=== PATIENT | female | born 1960 | race Caucasian/White ===

== ENCOUNTER → 2017-11-03 10:38 | Outpatient (CLI) | payer OTHER, SELFPAY ==
[2017-11-03 10:46] LABS: Red Blood Cells-Urine 0 SEEN /hpf (0-5)
[2017-11-03 11:19] LABS: Color, Urine Yellow (Yellow); Glucose, Dipstick Normal (Normal); Ketone-Dipstick Negative (Negative); Leukocyte Esterase-Dipstick 100 /ul (Negative); Nitrite-Dipstick Negative (Negative); Occult Blood-Urine Negative /ul (Negative); Protein-Dipstick Negative (Negative); Specific Gravity, Urine 1.025 (1.002-1.030); Urine Bilirubin Dipstick Negative (Negative); Urine Clarity Sl. Cloudy (Clear); Urine Urobilinogen 1 mg/dl (Normal)
[2017-11-03 11:30] LABS: Bacteria 1+ /hpf (None Seen); Squamous Epithelial Cells - UA 25-50 SEEN /hpf (5-10); White Blood Cells 5-10 SEEN /hpf (0-5)
[2017-11-03 11:31] LABS: Mucous, Urine 2+ /hpf (<or=2+)
[2017-11-03 11:39] LABS: Hemoglobin A1c 6.7 % (4.2-6.3)
[2017-11-03 11:43] LABS: Microalbumin,Random Urine 21.1 mg/L (NO RANGE EST.); Microalbumin:Creatinine Ratio 12.2 mg/g CRE (<30 mg/g CRE)
[2017-11-03 12:05] LABS: ALB/GLOB Ratio 0.9 RATIO (0.9-2.4); AST(SGOT) 12 U/L (15-37); Alanine Aminotransfer ALT/SGPT 24 U/L (13-56); Albumin, Serum 3.4 g/dL (3.2-5.0); Alkaline Phosphatase 71 U/L (45-117); Anion Gap 9 (5-15); BUN 16 mg/dL (7-18); BUN/Creat Ratio 21.8 RATIO (10-20); Calcium,Total 8.7 mg/dL (8.5-10.1); Chloride 106 mmol/L (98-107); Cholesterol 196 mg/dL (200); Creatinine, Serum 0.74 mg/dL (0.55-1.02); EST Glomerular Filtration Rate 86 mL/min (>60); Est Glom Filt Rate - Afr Amer 104 mL/min (>60); Globulin 3.8 g/dL (2.2-4.2); Glucose 126 mg/dL (74-106); High Density Lipoprotein 49 mg/dL; Potassium 4.1 mmol/L (3.5-5.1); Protein, Total 7.2 g/dL (6.4-8.2); Sodium Level 143 mmol/L (136-145); Triglycerides 102 mg/dL; Very Low Density Lipoprotein 20 mg/dL (5-40)
== END ==
PROVIDERS: Family Provider Family Medicine; PCP Family Medicine; Visit Provider Family Medicine
DX: E11.9 Type 2 diabetes mellitus without complications (principal); Z79.899 Other long term (current) drug therapy
CPT/HCPCS: 36415; 80053; 80061; 81001; 82043; 82570; 83036

== ENCOUNTER → 2019-10-30 09:24 | Outpatient (CLI) | payer OTHER, SELFPAY ==
[2017-01-31 15:23] VITALS: BMI 45.1
[2019-10-30 10:14] LABS: Microalbumin,Random Urine 10.8 mg/L (NO RANGE EST.); Microalbumin:Creatinine Ratio 7.1 mg/g CRE (<30 mg/g CRE)
[2019-10-30 10:22] LABS: Albumin, Serum 3.4 g/dL (3.2-5.0); BUN 12 mg/dL (7-18); BUN/Creat Ratio 15.6 RATIO (10-20); Creatinine, Serum 0.77 mg/dL (0.55-1.02); EST Glomerular Filtration Rate 81 mL/min (>60); Est Glom Filt Rate - Afr Amer 98 mL/min (>60); Glucose 153 mg/dL (74-106); Protein, Total 7.3 g/dL (6.4-8.2)
[2019-10-30 10:23] LABS: ALB/GLOB Ratio 0.9 RATIO (0.9-2.4); AST(SGOT) 20 U/L (15-37); Alanine Aminotransfer ALT/SGPT 28 U/L (13-56); Alkaline Phosphatase 78 U/L (45-117); Anion Gap 5 (5-15); Calcium,Total 8.8 mg/dL (8.5-10.1); Chloride 105 mmol/L (98-107); Cholesterol 222 mg/dL (200); Globulin 3.9 g/dL (2.2-4.2); High Density Lipoprotein 46 mg/dL; Sodium Level 139 mmol/L (136-145); Triglycerides 161 mg/dL; Very Low Density Lipoprotein 32 mg/dL (5-40)
[2019-10-30 11:10] LABS: HIV - WCH Non-Reactive (Nonreactive); Hepatitis C Antibody Non-Reactive (Nonreactive)
== END ==
PROVIDERS: PCP Nurse Practitioner Primary Care; Referring Provider Nurse Practitioner Primary Care; Visit Provider Nurse Practitioner Primary Care
DX: Z13.220 Encounter for screening for lipoid disorders (principal); E11.9 Type 2 diabetes mellitus without complications; Z11.59 Encounter for screening for other viral diseases; Z11.4 Encounter for screening for human immunodeficiency virus [HIV]
CPT/HCPCS: 36415; 80053; 80061; 82043; 82570; 86703; 86803

== ENCOUNTER 2023-10-24 01:58 | Inpatient (IN) | payer BC, SELFPAY ==
[2023-10-24] VITALS (17 sets, daily range): BP systolic 125–191; BP diastolic 48–78; PULSE 99–119; RESP 14–34; TEMP 36.3–36.8; O2SAT 94–99; BMI 39.9; BMI 39.7
[2023-10-24 02:30] LABS: Absolute Lymphocyte Count 2.23 X10^3/uL (0.83-4.51); Absolute Neutrophil Count 10.2 X10^3/uL (2.0-7.7); Basophil# 0.08 X10^3/uL; Basophil% 0.6 % (0-1); Eosinophil# 0.01 X10^3/uL; Eosinophils% 0.1 % (0-5); Hematocrit 31.5 % (37-47); Hemoglobin 10.4 g/dL (12.0-15.0); Lymphocyte # 2.23 X10^3/ul (0.83-4.51); Lymphocyte % 16.8 % (19-41); Mean Corpuscular Hgb 29.5 pg (27.0-32.0); Mean Corpuscular Volume 89.5 fL (81-99); Mean Platelet Vol. 11.7 fl (6.2-12.0); Monocyte% 5.3 % (0-10); NRBC Flagged by Analyzer 0 % (0-5); Neutrophil # 10.16 X10^3/uL (2.7-7.7); Neutrophil % 76.2 % (47-70); Platelet Count 284 K/mm3 (150-450); RBC Distribution Width CV 11.9 % (11.6-14.6); RBC Distribution Width SD 38.5 fl (35.1-43.9); Red Blood Count 3.52 M/mm3 (4.2-5.4); White Blood Count 13.3 K/mm3 (4.4-11.0)
[2023-10-24 02:54] LABS: AST(SGOT) 8 U/L (15-37); Alanine Aminotransfer ALT/SGPT 18 U/L (13-56); Albumin, Serum 3.2 g/dL (3.2-5.0); Alkaline Phosphatase 83 U/L (45-117); Anion Gap 12 (5-15); BUN 36 mg/dL (7-18); Bilirubin, Direct 0.21 mg/dL (0.00-0.30); Calcium,Total 8.9 mg/dL (8.5-10.1); Chloride 96 mmol/L (98-107); EST Glomerular Filtration Rate 48 mL/min (>60); Est Glom Filt Rate - Afr Amer 58 mL/min (>60); Globulin 3.5 g/dL (2.2-4.2); Glucose 616 mg/dL (74-106); Potassium 4.5 mmol/L (3.5-5.1); Protein, Total 6.7 g/dL (6.4-8.2); Sodium Level 131 mmol/L (136-145)
[2023-10-24 03:02] LABS: International Normalized Ratio 1.1; Prothrombin Time (Protime)PT. 14.4 SECONDS (11.7-14.9)
[2023-10-24 03:02] LABS: Lactic Acid 3.6 mmol/L (0.4-1.9)
[2023-10-24 03:03] LABS: Partial Thromboplast Time 22.9 Seconds (24.1-36.2)
--- NOTE | 2023-10-24 03:20 | CT_ITS ---
EXAM: CT ANGIOGRAPHY ABDOMEN AND PELVIS WITHOUT AND WITH INTRAVENOUS CONTRAST CLINICAL INDICATION: GI bleed TECHNIQUE: Helically acquired angiography images were obtained of the abdomen and pelvis without and with intravenous contrast. This CT exam was performed using one or more of the following dose reduction techniques: automated exposure control, adjustment of the mA and/or kV according to patient size, and/or use of iterative reconstruction technique. MIP reconstructed images were created and reviewed. CONTRAST: 100 cc of Isovue-370 IV. RADIATION DOSE: CTDIvol = 25.65 mGy, DLP = 1296.29 mGy-cm COMPARISON: No relevant prior studies available. FINDINGS: VASCULATURE: AORTA: No acute findings. Normal caliber abdominal aorta. No dissection. CELIAC TRUNK AND MESENTERIC ARTERIES: No acute findings. No occlusion or significant stenosis. No dissection. RENAL ARTERIES: No acute findings. No occlusion or significant stenosis. No dissection. ILIAC ARTERIES: No acute findings. No occlusion or significant stenosis. No dissection. LOWER THORAX: Unremarkable. Lung bases are clear. No cardiomegaly. No significant pericardial effusion. ABDOMEN: LIVER: Unremarkable. Homogeneous. No focal mass. GALLBLADDER AND BILE DUCTS: Cholecystectomy. No intra- or extrahepatic biliary ductal dilation. PANCREAS: Unremarkable. No focal cystic or solid mass. SPLEEN: Unremarkable. Normal size without focal cystic or solid mass. ADRENALS: Unremarkable. No nodules. KIDNEYS AND URETERS: Unremarkable. Normal renal size and position. No hydronephrosis. STOMACH AND BOWEL: Unremarkable. No stomach or bowel distention. No focal inflammatory change. PELVIS: APPENDIX: Normal appendix. BLADDER: Unremarkable. REPRODUCTIVE: Unremarkable as visualized. No mass. ABDOMEN and PELVIS: INTRAPERITONEAL SPACE: Unremarkable. No ascites or other fluid collection. No free air. BONES/JOINTS: Unremarkable. No suspicious lytic or blastic abnormality. SOFT TISSUES: Unremarkable. No discrete abdominal or pelvic wall hernia. LYMPH NODES: Unremarkable. No enlarged lymph nodes. CT/CTA Abd/Pelvis W/WO Contrast IMPRESSION: 1. No acute abdominal pelvic abnormality. 2. Cholecystectomy. 3. No GI bleeding identified. Electronically Signed: Jose Luis Lagunas MD at 5:47 EDT ,
[2023-10-24] MEDS: Pantoprazole Sodium 80 MG in 0.9% Normal Saline (50mL Bag) 15 ML 420 MG IV BOLUS (03:30)
[2023-10-24] MEDS: 0.9% Normal Saline (1000mL) 1,000 ML 999 ML IV ×2 (03:36→04:10)
[2023-10-24] MEDS: Pantoprazole Sodium 80 MG in 0.9% Normal Saline (100mL Bag) 80 ML 10 MG CONT INF ×2 (03:36→13:40)
[2023-10-24 04:26] LABS: Osmolality, Serum 309 mOsm/KG (280-301)
[2023-10-24 05:12] LABS: Bedside Glucose 342 mg/dL (74-106)
[2023-10-24 05:12] LABS: Bedside Glucose > 500 mg/dL (74-106)
[2023-10-24] MEDS: Insulin Lispro 100 UNIT/ML INSULN.PEN 8 UNIT SC (05:46)
--- NOTE | 2023-10-24 06:05 | PCM.HP.STD ---
[facility] - General General Date of Admission: 10/24/23 Date of Service: 10/24/23 Chief Complaint: GI Bleed with Dark Stools and Hyperglycemia. HPI Narrative WILLIAM GOLD, is a 62 F with a past medical history of history of morbid obesity; with BMI of ~45 this admission, DM-2; uncontrolled with hyperglycemia, positive family history of gastric cancer in her mother, history of cholecystectomy (1989), medical noncompliance and OA; with patient using daily unopposed ECASA to control pain who presents to [facility] ER complaining of GI bleed with dark stools and Severe Hyperglycemia. Ms Gold reports her symptoms began approximately 2-3 days prior to admission with the abrupt-onset of dark colored stools that initially was mild but then progressively worsened at approximately 6 AM yesterday with large volume of dark very foul-smelling stools. 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 She denies a history of GI bleeding, known peptic ulcer disease, GERD, other recent illness or similar previous episodes. She admits to nausea but she denies vomiting, fever, chills, constipation, chest pain or shortness of breath. She has not been actively managing her blood sugars or any of her other chronic health conditions. In the ER she underwent a CTA of the abdomen and pelvis with IV contrast that was negative for active bleeding at this time and she was then diagnosed with acute upper GI bleed with dark stools followed by bright red blood per rectum likely due to gastritis and suspected PUD secondary to Adverse Drug Reaction to unopposed aspirin complicated by laboratory evidence of lactic acidosis of 3.6 mmol/L present on admission and severe hyperglycemia of 616 mg/dL present on admission (but without DKA) all in the setting of chronic medical noncompliance and she was then admitted to the PCU for ongoing care for stay is expected to extend beyond 2 midnights. FORMERLY [facility], [facility]–1983 Medical History (Updated 10/24/23 @ 07:[address] Zeb Gonzalez, DO) Diabetes Home Medications ?Medication ?Instructions ?Recorded ?Last Taken ?Type aspirin 325 mg capsule 325 mg PO Q6H 10/24/23 Unknown History Allergy/AdvReac Type Severity Reaction Status Date / Time No Known Allergies Allergy Unverified 01/31/17 15:24 Surgical History (Updated 10/24/23 @ 07:[address] Zeb Gonzalez DO) Hx of cholecystectomy Social History Smoking Status: Never smoker alcohol intake: never ROS ROS Narrative Review of systems: General: Patient denies fever or chills. HENT: Denies headache, denies stuffy nose, denies sore throat EYES: Denies changes in vision or discharge from eyes. Resp: Denies cough, denies shortness of breath Cardiac: Denies chest pain, palpitations or heart racing. GI: Patient admits to GI bleed with dark stools with epigastric abdominal pain and nausea but she denies vomiting as per HPI. : Denies changes in urination Extremity: Denies swelling Musculoskeletal: Feels somewhat generally weak and unwell with chronic knee pain that is made worse with mobilization. She denies myalgias. Neuro: Patient denies headache, paresthesias or focal neurologic deficits. Heme: Patient admits to dark stools with intermittent BRBPR. Skin: Denies rashes Psychiatric: No complaints voiced related uncontrolled depression or anxiety. Endocrine: No polyuria, polydipsia or polyphagia. The rest of the 14 point ROS was negative except for positives in HPI. Vital Signs Vital Signs Vital Signs: 10/24/23 02:00 10/24/23 02:02 10/24/23 02:08 Temperature 98.2 F 98.2 F Temperature Source Oral Oral Pulse Rate 119 H 118 H 115 H Respiratory Rate 20 H 18 34 H Blood Pressure 191/74 H 191/74 H Blood Pressure Mean 113 113 Pulse Ox 94 94 Oxygen Delivery Method Room Air Room Air 10/24/23 02:15 10/24/23 02:30 10/24/23 02:45 Temperature Temperature Source Pulse Rate 114 H 114 H 115 H Respiratory Rate 27 H 23 H 18 Blood Pressure 159/74 H 155/78 H 139/62 H Blood Pressure Mean 95 98 82 Pulse Ox Oxygen Delivery Method 10/24/23 03:00 10/24/23 03:02 10/24/23 03:15 Temperature 98.2 F Temperature Source Temporal Pulse Rate 112 H 113 H Respiratory Rate 23 H 20 H Blood Pressure 162/76 H 162/76 H 155/62 H Blood Pressure Mean 102 104 81 Pulse Ox 98 97 Oxygen Delivery Method Room Air Room Air 10/24/23 03:24 10/24/23 03:30 10/24/23 03:50 Temperature Temperature Source Pulse Rate 111 H 109 H 118 H Respiratory Rate 24 H 34 H 33 H Blood Pressure 168/74 H Blood Pressure Mean 97 Pulse Ox Oxygen Delivery Method 10/24/23 04:00 Temperature Temperature Source Pulse Rate 107 H Respiratory Rate 19 H Blood Pressure 148/64 H Blood Pressure Mean 85 Pulse Ox 97 Oxygen Delivery Method Room Air Physical Exam Const alert, oriented x3 and no apparent distress Constitutional Narrative: Morbidly obese with chronically ill appearance. General Appearance: cooperative HEENT normocephalic, head/scalp atraumatic, hearing grossly normal bilaterally and moist oral mucous membranes Eyes PERRL and EOMs intact bilaterally Neck no lymphadenopathy and supple Resp normal respiratory effort, no retractions, no use of accessory muscles and clear to auscultation bilaterally Cardio regular rate and regular rhythm GI normal to inspection, nondistended, normoactive bowel sounds, soft to palpation and non-distended GI Narrative: Mild tenderness to palpation over epigastrium. Extremity normal to inspection and full ROM Skin Skin Narrative: Patient has no evidence of rash, wounds, abscess or jaundice Neuro oriented x3, CN's II-XII intact bilaterally, moves all extremities and no focal motor deficits Sensorium / Orientation: awake, alert, oriented to person, oriented to place and oriented to time Speech: speech normal Psych affect normal Results Medical Records Data Attestation: I reviewed the patient's medical records Lab / Micro Data Attestation: I reviewed the patient's lab results. 10/24/23 02:06 10/24/23 02:06 Labs: Laboratory Results - last 24 hr 10/24/23 02:06: WBC 13.3 H, RBC 3.52 L, Hgb 10.4 L, Hct 31.5 L, MCV 89.5, MCH 29.5, MCHC 33.0, RDW Std Deviation 38.5, RDW Coeff of Vladislav 11.9, Plt Count 284, MPV 11.7, Immature Gran % (Auto) 1.000 H, Neut % (Auto) 76.2 H, Lymph % (Auto) 16.8 L, [place] % (Auto) 5.3, Eos % (Auto) 0.1, Baso % (Auto) 0.6, Absolute Neuts (auto) 10.2 H, Absolute Lymphs (auto) 2.23, Nucleated RBC % 0, PT 14.4, INR 1.1, APTT 22.9 L, Sodium 131 L, Potassium 4.5, Chloride 96 L, Carbon Dioxide 23.0, Anion Gap 12, BUN 36 H, Creatinine 1.20 H, Est GFR (MDRD) Af Amer 58 L, Est GFR (MDRD) Non-Af 48 L, BUN/Creatinine Ratio 30.0 H, Glucose 616 H*, Calcium 8.9, Total Bilirubin 1.00, Direct Bilirubin 0.21, AST 8 L, ALT 18, Alkaline Phosphatase 83, Total Protein 6.7, Albumin 3.2, Globulin 3.5, Blood Type A POSITIVE, Antibody Screen NEGATIVE 10/24/23 02:20: POC Glucose > 500 H* 10/24/23 02:29: Lactic Acid 3.6 H* 10/24/23 03:43: Serum Osmolality 309 H, Acetone Level NEGATIVE 10/24/23 04:52: POC Glucose 342 H Micro: Microbiology 10/24/23 02:29 Stool Stool Occult Blood (DIEGO) - Final Occult Blood Positive Imaging Radiology Impression Abdomen/Pelvis CTA 10/24/23 03:20 IMPRESSION: 1. No acute abdominal pelvic abnormality. 2. Cholecystectomy. 3. No GI bleeding identified. Electronically Signed: Jose Luis Lagunas MD at 5:47 EDT , Assessment & Plan Assessment/Plan (1) Upper GI bleed: (2) Adverse drug reaction: QUALIFIERS: Encounter type: initial encounter Qualified Code(s): T50.905A - Adverse effect of unspecified drugs, medicaments and biological substances, initial encounter (3) Lactic acidosis: (4) Severe hyperglycemia due to diabetes mellitus: (5) Medical non-compliance: (6) Morbid obesity with BMI of 45.0-49.9, adult: (7) Family history of gastric cancer: (8) Osteoarthritis: QUALIFIERS: Osteoarthritis location: knee Osteoarthritis type: unspecified Laterality: bilateral Qualified Code(s): M17.0 - Bilateral primary osteoarthritis of knee (9) Hx of cholecystectomy: PLAN: Plan 1. Upper GI bleed with dark stools followed by BRBPR suspected to be due to gastritis and possible PUD with significantly elevated BUN of 36 mg/dL and only slightly- Admit to PCU. Keep strict n.p.o. and continue Protonix drip. Type and screen blood and transfuse for hemoglobin less than 7 g/dL. Give Zofran IV as needed for nausea or vomiting. Give morphine IV as needed for severe (level 6-10/10) pain. Finally, consult has been placed to business analyst manager on-call see patient on rounds in the a.m. for further recommendations regarding EGD this admission with help appreciated in advance. 2. Adverse Drug Reaction to unopposed aspirin likely causing #1 - Hold aspirin until further notice. 3. Lactic Acidosis of 3.6 mmol/L present on admission arising from #1 & #2 - Volume resuscitate, continue supportive and serialize lactate to monitor trend. 4. Severe hyperglycemia of 616 mg/dL present on admission complicating #1 - #3 consistent with DM-2; uncontrolled with Hyperglycemia - Give Lantus 30 units sq once with aim to keep blood glucose ~200 mg/dL to prevent hypoglycemia. We will consult clinical dietitian to provide diabetic teaching this admission with help appreciated this advance. 5. Medical Noncompliance magnifying the pathologic impact of #1 - #4 - Patient was instructed to take her medications and keep her follow up appointments as instructed in an effort to avoid further deterioration of her health status. 6. Morbid obesity; with BMI of ~45 this admission adding to the complexity of #1 - #5 - Weight loss will be recommended. Check TSH. This complicates her case and may hamper her recovery. 7. History of cholecystectomy (1989) - Noted. 8. OA; with patient using daily unopposed ECASA to control pain - Avoid ECASA and NSAID's. Give Tylenol prn once patient is cleared for oral intake. 9. DVT prophylaxis - SCD's only in light of GI bleeding outline above in #1. Total time: Approximately 75 minutes. Charges/Coding Visit Charges Inpatient E&M: 49760 Init Hosp L3
--- NOTE | 2023-10-24 06:23 | EX.ED.DYSGE1 ---
HPI History of Present Illness Chief Complaint: GI Bleed Informant: patient Narrative Narrative: Patient is a 62-year-old female who reports a remote history of diabetes but states that she does not follow with a physician nor does she take any medication other than daily aspirin. She reports for the last 5 or 6 days she has had dark/bloody bowel movement. She states that this evening she had 2 episodes of bright red blood which concerned her and therefore she was vies come to the hospital for evaluation. Patient denies any history of bleeding disorder or blood thinner use. She does report a history of intestinal cancer in both mother and father but denies any previous colonoscopy or history of intestinal CA in herself. She denies any abdominal pain associated with her persistent dark and bloody stool but with concern for internal bleeding she presents for evaluation [facility] Medical History (Updated 10/24/23 @ 07:[address] Ryan Cortes DO) Diabetes Home Medications ?Medication ?Instructions ?Recorded ?Last Taken ?Type aspirin 325 mg capsule 325 mg PO Q6H 10/24/23 Unknown History Allergy/AdvReac Type Severity Reaction Status Date / Time No Known Allergies Allergy Unverified 01/31/17 15:24 Surgical History (Updated 10/24/23 @ 07:[address] Zeb Gonzalez DO) Hx of cholecystectomy Social History Smoking Status: Never smoker alcohol intake: never ROS ROS ED Constitutional Constitutional ED: Denies chills or fever(s) Eyes Eyes: Denies blurry vision or change in vision ENT ENT ED: Denies sore throat Cardiovascular Cardiovascular: Denies chest pain Respiratory/Chest Respiratory/Chest: Denies cough or dyspnea Gastrointestinal Gastrointestinal: Reports melena; Denies abdominal pain, diarrhea, nausea or vomiting Genitourinary Genitourinary ED: Denies dysuria or hematuria Musculoskeletal Musculoskeletal: Denies myalgias Integumentary Denies rash Neurologic Neurologic: Denies headache(s) Hematologic/Lymphatic Hematologic/Lymphatic: Denies easy bleeding or easy bruising EXAM Physical Exam Const Vital Signs: 10/24/23 02:00 10/24/23 02:02 10/24/23 02:08 Temperature 98.2 F 98.2 F Temperature Source Oral Oral Pulse Rate 119 H 118 H 115 H Respiratory Rate 20 H 18 34 H Blood Pressure 191/74 H 191/74 H Blood Pressure Mean 113 113 Pulse Ox 94 94 Oxygen Delivery Method Room Air Room Air 10/24/23 02:15 10/24/23 02:30 10/24/23 02:45 Temperature Temperature Source Pulse Rate 114 H 114 H 115 H Respiratory Rate 27 H 23 H 18 Blood Pressure 159/74 H 155/78 H 139/62 H Blood Pressure Mean 95 98 82 Pulse Ox Oxygen Delivery Method 10/24/23 03:00 10/24/23 03:02 10/24/23 03:15 Temperature 98.2 F Temperature Source Temporal Pulse Rate 112 H 113 H Respiratory Rate 23 H 20 H Blood Pressure 162/76 H 162/76 H 155/62 H Blood Pressure Mean 102 104 81 Pulse Ox 98 97 Oxygen Delivery Method Room Air Room Air 10/24/23 03:24 10/24/23 03:30 10/24/23 03:50 Temperature Temperature Source Pulse Rate 111 H 109 H 118 H Respiratory Rate 24 H 34 H 33 H Blood Pressure 168/74 H Blood Pressure Mean 97 Pulse Ox Oxygen Delivery Method 10/24/23 04:00 10/24/23 06:00 Temperature 97.3 F L Temperature Source Pulse Rate 107 H 106 H Respiratory Rate 19 H 21 H Blood Pressure 148/64 H 133/48 H Blood Pressure Mean 85 76 Pulse Ox 97 96 Oxygen Delivery Method Room Air Positive well nourished, well developed and obese General Appearance ED: well developed; Negative for pallor Nutritional Appearance: obese HEENT Reports moist mucous membranes HEENT Narrative: No dried blood or active bleeding noted in the posterior pharynx No secondary findings to suggest infection Eyes PERRL and EOMs intact bilaterally General Eye ED: Negative for pale conjunctiva or scleral icterus Neck supple Resp normal respiratory effort and clear to auscultation bilaterally Cardio regular rhythm Rate: tachycardic and other Other Details: Tachycardic rate with regular rhythm Radial and carotid pulses are equal and symmetric GI normal to inspection, nondistended, normoactive bowel sounds, non-tender, non-distended and no masses GI Narrative: No voluntary guarding or rigidity or pulsatile mass Auscultation: normoactive bowel sounds Palpation: soft Narrative: No thrombosed or bleeding external hemorrhoid noted. No anal fissure present. Rectal tone is normal and there is no obvious internal masses palpated Stool is melanotic in color and Hemoccult positive Extremity normal to inspection Neuro oriented x3, CN's II-XII intact bilaterally and no sensory deficits noted Sensorium / Orientation: alert Motor Exam: strength 5/5 throughout Psych mental status grossly normal Skin no rashes or lesions noted General Skin Exam: Negative for jaundice or pallor MDM MDM MDM Narrative Medical decision making narrative: Patient arrived to the ER tachycardic and hypertensive but otherwise with stable vitals and awake alert and oriented. She reported 5 to 6 days of dark stool with 2 episodes of breakthrough red bleeding today. Differential diagnosis is for upper GI bleed versus perforated ulcer versus diverticular bleeding versus acute blood loss anemia. With her history of diabetes that has not been monitored or controlled there is concern for DKA or HHS. Secondary his basic labs were obtained. Patient's hemoglobin is stable at 10.4 going he has need for blood transfusion. However BUN is elevated consistent with upper GI bleed. Her glucose is elevated at 616 but she does not have findings to suggest DKA or HHS. At this time with her persistent bleeding for the past 5 to 6 days with 2 breakthrough episodes this evening there is concern that she could spontaneously worsen and need an emergent EGD and/or colonoscopy to correct any cause a potential bleed. She is not in DKA or HHS at this time but with her uncontrolled diabetes there is need for education and initiation of treatment to prevent diabetic complication. The case was discussed with dinking machine operator Dr. Vázquez who does agree that keeping her in the hospital for continued monitoring and/or scopes is appropriate. Secondary to this the hospitalist was then contacted and does agree to accept the patient for continued monitoring of her GI bleed as well as uncontrolled diabetes. The patient was started on a Protonix bolus and drip secondary to the upper GI bleed and treated with 2 L of fluid secondary to her hyperglycemia. A sliding scale short acting insulin was not started a units based on her elevated blood. At this time she is awake and alert and hemodynamically stable so do not feel there is need for placement in the ICU but close monitoring in PCU is appropriate. This was discussed with the hospitalist who agrees with plan of care. History & Record Review Discussion w/independent historian: Patient Lab Data Attestation: I reviewed the patient's lab results. Labs: Laboratory Results - last 24 hr 10/24/23 10/24/23 10/24/23 02:06 02:20 02:29 WBC 13.3 H RBC 3.52 L Hgb 10.4 L Hct 31.5 L MCV 89.5 MCH 29.5 MCHC 33.0 RDW Std Deviation 38.5 RDW Coeff of Vladislav 11.9 Plt Count 284 MPV 11.7 Immature Gran % (Auto) 1.000 H Neut % (Auto) 76.2 H Lymph % (Auto) 16.8 L [place] % (Auto) 5.3 Eos % (Auto) 0.1 Baso % (Auto) 0.6 Absolute Neuts (auto) 10.2 H Absolute Lymphs (auto) 2.23 Nucleated RBC % 0 PT 14.4 INR 1.1 APTT 22.9 L Sodium 131 L Potassium 4.5 Chloride 96 L Carbon Dioxide 23.0 Anion Gap 12 BUN 36 H Creatinine 1.20 H Est GFR (MDRD) Af Amer 58 L Est GFR (MDRD) Non-Af 48 L BUN/Creatinine Ratio 30.0 H Glucose 616 H* Serum Osmolality Lactic Acid 3.6 H* Calcium 8.9 Iron 91 TIBC 326 Iron Saturation 27.9 Ferritin 245 Total Bilirubin 1.00 Direct Bilirubin 0.21 AST 8 L ALT 18 Alkaline Phosphatase 83 Total Protein 6.7 Albumin 3.2 Globulin 3.5 Acetone Level POC Glucose > 500 H* Blood Type A POSITIVE Antibody Screen NEGATIVE 10/24/23 10/24/23 03:43 04:52 WBC RBC Hgb Hct MCV MCH MCHC RDW Std Deviation RDW Coeff of Vladislav Plt Count MPV Immature Gran % (Auto) Neut % (Auto) Lymph % (Auto) [place] % (Auto) Eos % (Auto) Baso % (Auto) Absolute Neuts (auto) Absolute Lymphs (auto) Nucleated RBC % PT INR APTT Sodium Potassium Chloride Carbon Dioxide Anion Gap BUN Creatinine Est GFR (MDRD) Af Amer Est GFR (MDRD) Non-Af BUN/Creatinine Ratio Glucose Serum Osmolality 309 H Lactic Acid Calcium Iron TIBC Iron Saturation Ferritin Total Bilirubin Direct Bilirubin AST ALT Alkaline Phosphatase Total Protein Albumin Globulin Acetone Level NEGATIVE POC Glucose 342 H Blood Type Antibody Screen Radiography Diagnostic Testing: Clinical Impression(s) from Imaging Studies Abdomen/Pelvis CTA 10/24/23 03:20 IMPRESSION: 1. No acute abdominal pelvic abnormality. 2. Cholecystectomy. 3. No GI bleeding identified. Electronically Signed: Jose Luis Lagunas MD at 5:47 EDT , Management Discussion w/another healthcare provider: Hospitalist and Vacuum Drier Operator Discharge Plan Dx/Rx/DC Orders Clinical Impression: Upper GI bleed, Lactic acidosis, Severe hyperglycemia due to diabetes mellitus, Morbid obesity with BMI of 45.0-49.9, adult Disposition Disposition: Acute Care Hospital [facility] Discharge Date/Time: 10/24/23 07:24
[2023-10-24 06:32] LABS: Reflex Lactate? Y
[2023-10-24 07:02] LABS: Ferritin 245 ng/mL (8-252); Iron 91 ug/dL (50-170); Iron Binding Capacity,Total 326 ug/dL (250-450); PERCENT IRON SATURATION 27.9 % (15.0-55.0)
[2023-10-24 07:07] LABS: Bedside Glucose 299 mg/dL (74-106)
[2023-10-24] MEDS: Lactated Ringers 1,000 ML 100 ML IV ×2 (08:16→17:10)
[2023-10-24] MEDS: Insulin Glargine-YFGN 100 UNIT/ML Pen 30 UNIT SC (08:19)
[2023-10-24 08:44] LABS: Bedside Glucose 251 mg/dL (74-106)
--- NOTE | 2023-10-24 10:32 | PCM.PN.HOSP ---
Reason for Visit Reason for Visit: Diagnoses Type 2 diabetes mellitus with hyperglycemia (10/24/23) Morbid (severe) obesity due to excess calories (10/24/23) Acidosis, unspecified (10/24/23) Gastrointestinal hemorrhage, unspecified (10/24/23) Bilateral primary osteoarthritis of knee (10/24/23) Adverse effect of unspecified drugs, medicaments and biological substances, initial encounter (10/24/23) Body mass index [BMI] 45.0-49.9, adult (10/24/23) Family history of malignant neoplasm of digestive organs (10/24/23) Acquired absence of other specified parts of digestive tract (10/24/23) Patient's noncompliance with other medical treatment and regimen due to unspecified reason (10/24/23) Other specified postprocedural states (10/24/23) Objective Data Objective Data Vital Signs: Vital Signs Temp Pulse Resp BP Pulse Ox O2 Del Method 98.1 F 109 H 14 139/61 H 98 Room Air 10/24/23 07:51 10/24/23 07:51 10/24/23 07:51 10/24/23 07:51 10/24/23 07:51 10/24/23 08:03 Oxygen Delivery Method Room Air Weight: 233 lb 0.458 oz Body Mass Index (BMI) 39.7 Intake & Output: Intake and Output for Last 24 Hours 10/22/23 10/23/23 10/24/23 23:59 23:59 23:59 Intake Total 2034 Balance 2034 Lab / Micro Data 10/24/23 02:06 10/24/23 02:06 Labs: Laboratory Results - last 24 hr 10/24/23 02:06: WBC 13.3 H, RBC 3.52 L, Hgb 10.4 L, Hct 31.5 L, MCV 89.5, MCH 29.5, MCHC 33.0, RDW Std Deviation 38.5, RDW Coeff of Vladislav 11.9, Plt Count 284, MPV 11.7, Immature Gran % (Auto) 1.000 H, Neut % (Auto) 76.2 H, Lymph % (Auto) 16.8 L, [place] % (Auto) 5.3, Eos % (Auto) 0.1, Baso % (Auto) 0.6, Absolute Neuts (auto) 10.2 H, Absolute Lymphs (auto) 2.23, Nucleated RBC % 0, PT 14.4, INR 1.1, APTT 22.9 L, Sodium 131 L, Potassium 4.5, Chloride 96 L, Carbon Dioxide 23.0, Anion Gap 12, BUN 36 H, Creatinine 1.20 H, Est GFR (MDRD) Af Amer 58 L, Est GFR (MDRD) Non-Af 48 L, BUN/Creatinine Ratio 30.0 H, Glucose 616 H*, Calcium 8.9, Iron 91, TIBC 326, Iron Saturation 27.9, Ferritin 245, Total Bilirubin 1.00, Direct Bilirubin 0.21, AST 8 L, ALT 18, Alkaline Phosphatase 83, Total Protein 6.7, Albumin 3.2, Globulin 3.5, Blood Type A POSITIVE, Antibody Screen NEGATIVE 10/24/23 02:20: POC Glucose > 500 H* 10/24/23 02:29: Lactic Acid 3.6 H* 10/24/23 03:43: Serum Osmolality 309 H, Acetone Level NEGATIVE 10/24/23 04:52: POC Glucose 342 H 10/24/23 06:43: POC Glucose 299 H 10/24/23 06:46: Lactic Acid 2.0 10/24/23 08:21: POC Glucose 251 H Micro: Microbiology 10/24/23 02:29 Stool Stool Occult Blood (DIEGO) - Final Occult Blood Positive Radiography Diagnostic Testing: Radiology Impression Abdomen/Pelvis CTA 10/24/23 03:20 IMPRESSION: 1. No acute abdominal pelvic abnormality. 2. Cholecystectomy. 3. No GI bleeding identified. Electronically Signed: Jose Luis Lagunas MD at 5:47 EDT , Physical Exam Narrative Seen and examined. Patient stated that she had blackish stool for about 1 week and then yesterday was bright red color. Denies vomiting blood or nausea. Denies prior history of GI bleed Physical exam general: Alert, Oriented x3, Cooperative HEENT: Atraumatic, PERRLA, EOMI, Normocephalic Oral: No Gingival or Mucosal Lesions/ Ulcerations Neck: Supple, No JVD, Negative Carotid Bruits Chest wall/Lungs: Air entry diminished in bilateral lung bases. No crepitation/rhonchi Cardiovascular: Regular rate, Regular Rhythm, Normal S1, Normal S2, No M/G/R Abdomen: Bowel Sounds Present, Soft, Non Tender, Non-Distended : No dysuria. No renal angle tenderness. No suprapubic tenderness. Extremities: No edema, Capillary Refill Less than 3 Seconds Skin: No rashes, No breakdown Musculoskeletal: No Tenderness to Palpation of Joints or Extremities Neurological: Cranial nerves II-XII grossly intact, DTR 2+/4. No acute focal neurological deficit. Psych/Mental Status: Normal Affect, Appropriate. Assessment & Plan Assessment/Plan (1) Upper GI bleed: (2) Adverse drug reaction: QUALIFIERS: Encounter type: initial encounter Qualified Code(s): T50.905A - Adverse effect of unspecified drugs, medicaments and biological substances, initial encounter PLAN: Plan 1. Upper GI bleed: Patient had melena for 1 week before having bright red rectal bleed. BUNs/creatinine ratio 30 suggestive of upper GI bleed. Admitted to PCU keep strict n.p.o. and continue Protonix drip. Type and screen blood and transfuse for hemoglobin less than 7 g/dL. Give Zofran IV as needed for nausea or vomiting. Give morphine IV as needed for severe (level 6-10/10) pain. Finally, consult has been placed to architectural examiner on-call see patient on rounds in the a.m. for further recommendations regarding EGD this admission with help appreciated in advance. 2. Adverse Drug Reaction to unopposed aspirin probably causing upper GI bleed- Hold aspirin until further notice. 3. Lactic Acidosis of 3.6 mmol/L present on admission probably from upper GI bleed- Volume resuscitate, continue supportive and serialize lactate to monitor trend. 4. Severe hyperglycemia of 616 mg/dL present on admission consistent with DM-2; uncontrolled with Hyperglycemia - Give Lantus 30 units sq once with aim to keep blood glucose ~200 mg/dL to prevent hypoglycemia Glucose 251. 5. Medical Noncompliance - Patient was instructed to take her medications and keep her follow up appointments as instructed in an effort to avoid further deterioration of her health status. 6. Morbid obesity; with BMI of ~45 - Weight loss will be recommended. Check TSH. This complicates her case and may hamper her recovery. 7. History of cholecystectomy (1989) - Noted. 8. OA; with patient using daily unopposed ECASA to control pain - Avoid ECASA and NSAID's. Give Tylenol prn once patient is cleared for oral intake. 9. DVT prophylaxis - SCD's only in light of GI bleeding
[2023-10-24 10:47] LABS: Hemoglobin A1c 12.9 % (3.8-5.6)
[2023-10-24 16:07] LABS: Bedside Glucose 297 mg/dL (74-106)
[2023-10-24] MEDS: Insulin Lispro 100 UNIT/ML INSULN.PEN 10 UNIT SC (17:03)
[2023-10-24] MEDS: Insulin Lispro 100 UNIT/ML INSULN.PEN SC (17:04)
[2023-10-24] MEDS: Bisacodyl 5 MG Tablet 20 MG PO (19:48)
[2023-10-24] MEDS: Electrolyte Solution/Peg's 4000 ML PO (19:49)
[2023-10-24 23:14] LABS: Bedside Glucose 141 mg/dL (74-106)
[2023-10-25] VITALS (10 sets, daily range): BP systolic 111–151; BP diastolic 57–73; PULSE 86–100; RESP 12–20; TEMP 36.1–36.8; O2SAT 93–100; BMI 40.1
--- NOTE | 2023-10-25 | GASB_PTH ---
PATIENT: WILLIAM SINGER LOC: [facility] U#:[id number] AGE/SX: 62/F ROOM: [facility] RE10/24/[address]: Dr. Dwight Bill MD : 1960 BED: 1 DIS: 10/26/2023 SPEC #: [id number] RECD: 10/25/23 18:32 STATUS: DIAMOND BROWN #: [id number] JORGE: 10/25/23 00:[address]: Jean-Pierre Vázquez DEPT: SURGICAL PATHOLOGY RECD BY: Ashok Chen ENTERED: 10/26/23 08:28 SP TYPE: Gastric Bx OTHR DR: Dr. Zeb Gonzalez, DO Dr. Dwight Bill MD No Primary Care Phys Tissues: A - Gastric mucous membrane B - Duodenum, NOS C - Ileum, NOS Procedures: Surgery Specimen Level IV Comments: @ Ordering doctor for SUIV edited from to @ amy GUZMAN at 10/26/23 09 @ Submitting doctor edited from to @ amy GUZMAN at 10/26/23902 HEADER OPERATION: Colonoscopy, EGD, biopsy PRE-OP DIAGNOSIS: Upper GI bleed TISSUE SUBMITTED: A- Gastric ulcer biopsy, B- Duodenal ulcer biopsy, C- Terminal ileum biopsy MICROSCOPIC DIAGNOSIS A. Gastric ulcer, biopsy: Mild gastritis. See microscopic description and comment. B. Duodenal ulcer, biopsy: Fragments of duodenal mucosa with ulceration, fibrinous exudation, acute and chronic inflammation. C. Terminal ileum, biopsy: Fragments of small intestinal mucosa with mild non-specific chronic inflammation. 10/27/2023 COMMENT A. The results of immunohistochemistry for Helicobacter pylori will be reported separately ([id number]). MICROSCOPIC DESCRIPTION Slides are reviewed. A. The specimen shows fragments of gastric mucosa with chronic inflammatory cell infiltrates in the lamina propria consisting of lymphocytes and plasma cells, consistent with mild chronic gastritis. GROSS DESCRIPTION A. Received in fixative is one container labeled with the patient's name and designated Gastric ulcer biopsy. The specimen consists of multiple irregular fragments of light montanez soft tissue that in aggregate measure 1.0 x 0.4 x 0.1 cm. The specimen is totally submitted in one cassette. B. Received in fixative is one container labeled with the patient's name and designated Duodenal ulcer biopsy. The specimen consists of multiple irregular fragments of light montanez soft tissue that in aggregate measure 1.0 x 0.3 x 0.1 cm. The specimen is totally submitted in one cassette. C. Received in fixative is one container labeled with the patient's name and designated Terminal ileum biopsy. The specimen consists of multiple irregular fragments of light montanez soft tissue that in aggregate measure 1.0 x 0.3 x 0.1 cm. The specimen is totally submitted in one cassette. SJ 10/26/2023 TC:2 CPT:45134a2
[2023-10-25] MEDS: Pantoprazole Sodium 80 MG in 0.9% Normal Saline (100mL Bag) 80 ML 10 MG CONT INF ×3 (00:03→21:17)
[2023-10-25] MEDS: Lactated Ringers 1,000 ML 100 ML IV (03:13)
[2023-10-25 05:38] LABS: Absolute Lymphocyte Count 2.55 X10^3/uL (0.83-4.51); Absolute Neutrophil Count 3.9 X10^3/uL (2.0-7.7); Basophil# 0.06 X10^3/uL; Basophil% 0.8 % (0-1); Eosinophils% 4.2 % (0-5); Hematocrit 23.3 % (37-47); Hemoglobin 7.5 g/dL (12.0-15.0); Lymphocyte # 2.55 X10^3/ul (0.83-4.51); Lymphocyte % 35.4 % (19-41); Mean Corp Hgb Conc 32.2 g/dL (32-36); Mean Corpuscular Hgb 29.9 pg (27.0-32.0); Mean Corpuscular Volume 92.8 fL (81-99); Mean Platelet Vol. 11.1 fl (6.2-12.0); Monocyte# 0.37 X10^3/uL; Monocyte% 5.1 % (0-10); NRBC Flagged by Analyzer 0 % (0-5); Neutrophil # 3.88 X10^3/uL (2.7-7.7); Neutrophil % 53.8 % (47-70); Platelet Count 194 K/mm3 (150-450); RBC Distribution Width CV 12.4 % (11.6-14.6); RBC Distribution Width SD 41.4 fl (35.1-43.9); Red Blood Count 2.51 M/mm3 (4.2-5.4); White Blood Count 7.2 K/mm3 (4.4-11.0)
[2023-10-25 06:10] LABS: AST(SGOT) 15 U/L (15-37); Alanine Aminotransfer ALT/SGPT 16 U/L (13-56); Albumin, Serum 2.4 g/dL (3.2-5.0); Alkaline Phosphatase 57 U/L (45-117); Anion Gap 8 (5-15); BUN 8 mg/dL (7-18); BUN/Creat Ratio 17.7 RATIO (10-20); Calcium,Total 7.9 mg/dL (8.5-10.1); Chloride 105 mmol/L (98-107); Creatinine, Serum 0.45 mg/dL (0.55-1.02); EST Glomerular Filtration Rate 148 mL/min (>60); Est Glom Filt Rate - Afr Amer 179 mL/min (>60); Estimated Creatinine Clearance 150.06 ml/min; Globulin 2.4 g/dL (2.2-4.2); Glucose 152 mg/dL (74-106); Magnesium 1.7 mg/dL (1.6-2.6); Phosphorus 2.4 mg/dL (2.5-4.9); Potassium 2.9 mmol/L (3.5-5.1); Protein, Total 4.8 g/dL (6.4-8.2); Sodium Level 140 mmol/L (136-145)
[2023-10-25 06:57] LABS: Bedside Glucose 138 mg/dL (74-106)
--- NOTE | 2023-10-25 07:48 | PCM.PN.HOSP ---
Reason for Visit Reason for Visit: Diagnoses Type 2 diabetes mellitus with hyperglycemia (10/24/23) Morbid (severe) obesity due to excess calories (10/24/23) Acidosis, unspecified (10/24/23) Gastrointestinal hemorrhage, unspecified (10/24/23) Bilateral primary osteoarthritis of knee (10/24/23) Adverse effect of unspecified drugs, medicaments and biological substances, initial encounter (10/24/23) Body mass index [BMI] 45.0-49.9, adult (10/24/23) Family history of malignant neoplasm of digestive organs (10/24/23) Acquired absence of other specified parts of digestive tract (10/24/23) Patient's noncompliance with other medical treatment and regimen due to unspecified reason (10/24/23) Other specified postprocedural states (10/24/23) Objective Data Objective Data Vital Signs: Vital Signs Temp Pulse Resp BP Pulse Ox O2 Del Method 98 F 100 16 146/60 H 100 Room Air 10/25/23 03:00 10/25/23 03:00 10/25/23 03:00 10/25/23 03:00 10/25/23 03:00 10/25/23 03:00 Oxygen Delivery Method Room Air Weight: 233 lb 14.567 oz Body Mass Index (BMI) 40.1 Intake & Output: Intake and Output for Last 24 Hours 10/23/23 10/24/23 10/25/23 23:59 23:59 23:59 Intake Total 4125.00 / 8125.00 5000 / 5000 Balance 4125.00 / 8125.00 5000 / 5000 Lab / Micro Data 10/25/23 05:08 10/25/23 05:08 Labs: Laboratory Results - last 24 hr 10/24/23 02:06: Hemoglobin A1c 12.9 H 10/24/23 08:21: POC Glucose 251 H 10/24/23 15:48: POC Glucose 297 H 10/24/23 22:53: POC Glucose 141 H 10/25/23 05:08: WBC 7.2, RBC 2.51 L, Hgb 7.5 L, Hct 23.3 L, MCV 92.8, MCH 29.9, MCHC 32.2, RDW Std Deviation 41.4, RDW Coeff of Vladislav 12.4, Plt Count 194, MPV 11.1, Immature Gran % (Auto) 0.700, Neut % (Auto) 53.8, Lymph % (Auto) 35.4, [place] % (Auto) 5.1, Eos % (Auto) 4.2, Baso % (Auto) 0.8, Absolute Neuts (auto) 3.9, Absolute Lymphs (auto) 2.55, Nucleated RBC % 0, Sodium 140, Potassium 2.9 L, Chloride 105, Carbon Dioxide 27.0, Anion Gap 8, BUN 8, Creatinine 0.45 L, Estim Creat Clear Calc 150.06, Est GFR (MDRD) Af Amer 179, Est GFR (MDRD) Non-Af 148, BUN/Creatinine Ratio 17.7, Glucose 152 H, Calcium 7.9 L, Phosphorus 2.4 L, Magnesium 1.7, Total Bilirubin 0.60, AST 15, ALT 16, Alkaline Phosphatase 57, Total Protein 4.8 L, Albumin 2.4 L, Globulin 2.4, Albumin/Globulin Ratio 1.0, TSH 1.920 10/25/23 06:35: POC Glucose 138 H Micro: Microbiology 10/24/23 02:29 Stool Stool Occult Blood (DIEGO) - Final Occult Blood Positive Physical Exam Narrative Seen and examined. No further bleeding last night or acute clinical change. Hemoglobin dropped. Electrolyte abnormality. Patient was admitted with blackish stool for about 1 week and then yesterday was bright red color. Denies vomiting blood or nausea. Denies prior history of GI bleed Physical exam: General: Alert, Oriented x3, Cooperative HEENT: Atraumatic, PERRLA, EOMI, Normocephalic Oral: No Gingival or Mucosal Lesions/ Ulcerations Neck: Supple, No JVD, Negative Carotid Bruits Chest wall/Lungs: Air entry diminished in bilateral lung bases. No crepitation/rhonchi Cardiovascular: Regular rate, Regular Rhythm, Normal S1, Normal S2, No M/G/R Abdomen: Bowel Sounds Present, Soft, Non Tender, Non-Distended : No dysuria. No renal angle tenderness. No suprapubic tenderness. Extremities: No edema, Capillary Refill Less than 3 Seconds Skin: No rashes, No breakdown Musculoskeletal: No Tenderness to Palpation of Joints or Extremities Neurological: Cranial nerves II-XII grossly intact, DTR 2+/4. No acute focal neurological deficit. Psych/Mental Status: Normal Affect, Appropriate. Assessment & Plan Assessment/Plan (1) Upper GI bleed: (2) Adverse drug reaction: QUALIFIERS: Encounter type: initial encounter Qualified Code(s): T50.905A - Adverse effect of unspecified drugs, medicaments and biological substances, initial encounter PLAN: Plan 1. Upper GI bleed: Patient had melena for 1 week before having bright red rectal bleed. BUNs/creatinine ratio 30 suggestive of upper GI bleed. Admitted to PCU keep strict n.p.o. and continue Protonix drip. Type and screen blood and transfuse for hemoglobin less than 7 g/dL. Give Zofran IV as needed for nausea or vomiting. Give morphine IV as needed for severe (level 6-10/10) pain. Finally, consult has been placed to correspondence school instructor on-call see patient on rounds in the a.m. for further recommendations regarding EGD this admission with help appreciated in advance. 10/24: Plan for EGD today. Hemoglobin dropped from 10.4-7.5. Iron profile including iron saturation ferritin normal range. Acute severe blood loss anemia from GI bleed. IV iron ordered Electrolyte abnormality: Patient has hypokalemia, hypophosphatemia and magnesium. Low normal. Electrolytes replacement ordered. Hypomagnesemia and 2. Adverse Drug Reaction to unopposed aspirin probably causing upper GI bleed- Hold aspirin until further notice. 3. Lactic Acidosis of 3.6 mmol/L present on admission probably from upper GI bleed- Volume resuscitate, continue supportive and serialize lactate to monitor trend. 4. DM type II, severe hyperglycemia of 616 mg/dL present on admission ; uncontrolled with Hyperglycemia - Give Lantus 30 units sq once with aim to keep blood glucose ~200 mg/dL to prevent hypoglycemia Glucose 251. 10/24: A1c 12.9%. Glucose controlled 138 in the morning and scheduled Humalog insulin 10 units 3 times daily with meal. 5. Medical Noncompliance - Patient was instructed to take her medications and keep her follow up appointments as instructed in an effort to avoid further deterioration of her health status. 6. Morbid obesity; with BMI of ~45 - Weight loss will be recommended. Check TSH. This complicates her case and may hamper her recovery. 7. History of cholecystectomy (1989) - Noted. 8. OA; with patient using daily unopposed ECASA to control pain - Avoid ECASA and NSAID's. Give Tylenol prn once patient is cleared for oral intake. 9. DVT prophylaxis - SCD's only in light of GI bleeding 10/24/23 02:06: Hemoglobin A1c 12.9 H 10/24/23 08:21: POC Glucose 251 H 10/24/23 15:48: POC Glucose 297 H 10/24/23 22:53: POC Glucose 141 H 10/25/23 05:08: WBC 7.2, RBC 2.51 L, Hgb 7.5 L, Hct 23.3 L, MCV 92.8, MCH 29.9, MCHC 32.2, RDW Std Deviation 41.4, RDW Coeff of Vladislav 12.4, Plt Count 194, MPV 11.1, Immature Gran % (Auto) 0.700, Neut % (Auto) 53.8, Lymph % (Auto) 35.4, [place]k % (Auto) 5.1, Eos % (Auto) 4.2, Baso % (Auto) 0.8, Absolute Neuts (auto) 3.9, Absolute Lymphs (auto) 2.55, Nucleated RBC % 0, Sodium 140, Potassium 2.9 L, Chloride 105, Carbon Dioxide 27.0, Anion Gap 8, BUN 8, Creatinine 0.45 L, Estim Creat Clear Calc 150.06, Est GFR (MDRD) Af Amer 179, Est GFR (MDRD) Non-Af 148, BUN/Creatinine Ratio 17.7, Glucose 152 H, Calcium 7.9 L, Phosphorus 2.4 L, Magnesium 1.7, Total Bilirubin 0.60, AST 15, ALT 16, Alkaline Phosphatase 57, Total Protein 4.8 L, Albumin 2.4 L, Globulin 2.4, Albumin/Globulin Ratio 1.0, TSH 1.920 10/25/23 06:35: POC Glucose 138 H Charges/Coding Visit Charges Inpatient E&M: 57437 Subs Hosp L2
[2023-10-25] MEDS: Magnesium Sulfate 2 GM in Dextrose 5%-Water (100mL Bag) 100 ML IV (09:30)
[2023-10-25] MEDS: Potassium Phosphate 21 MM in 0.9% Normal Saline (250mL Bag) 250 ML 84 MM IV (09:30)
--- NOTE | 2023-10-25 11:00 | CASEMGMT ---
RN CM Face to Face with patient for initial transition planning/care coordination assessment. RN CM introduced self and role at [facility]. Patient lying in bed, alert and oriented. Patient willing to participate in assessment and is able to answer all questions appropriately. Care providers, pharmacy, and demographics verified. Strata: 1 PCP: none, PCP list provided to patient Specialists: none Preferred Pharmacy: [facility] Insurance: [place] Prescription Benefit: yes Living Will/HPOA: none LNOK: Living Arrangements: Patient lives with and son in a single story home with 3 steps and railing or ramp to enter the home. Patient is independent at home. Transportation: self, son DME/HHC: Patient has shower chair, cane, crutches, walker, grab bars, and glucometer with supplies at home. No previous HHC or SNF Patient wishes to discharge home, denies need for home health at this time. Patient states he has no further needs or concerns at this time. CM to follow for discharge planning needs that may arise. Disposition Plan: Patient to discharge home with family support and follow-up plans in place. Brielle MARY, RN, CM
[2023-10-25 12:11] LABS: Bedside Glucose 164 mg/dL (74-106)
[2023-10-25] MEDS: Sodium Ferric Gluconat/Sucrose 250 MG in 0.9% Normal Saline (250mL Bag) 250 ML 135 MG IV (12:51)
[2023-10-25] MEDS: 0.9% Normal Saline (1000mL) 1,000 ML 15 ML IV (14:09)
--- NOTE | 2023-10-25 14:42 | PCM.PRE.AN2 ---
ASA Classification* ASA Classification ASA Classification: 3 Assessment & Plan Anesthesia* Anesthesia Assessment Anesthesia Assessment: Discussed sedation and/or anesthesia options, risks, benefits, and alternatives with patient/parents/legal guardian/POA. Questions invited. The patient/parents/legal guardian/POA seems to understand and agrees to proceed with anesthesia plan. Reviewed the physical assessment, medical history, allergy history and patient home medications list prior to surgery/procedure/anesthetic and documented any changes. Performed airway and anesthesia risk assessments. Anesthesia Type Anesthesia Type: MAC (see written pre anesthesia record for full assessment) Anesthesia Focused Assessment* Temperature: 98.0 F Pulse Rate: 92 Blood Pressure: 126/57 Respiratory Rate: 18 Pulse Ox: 95 Airway Assessment Mouth opens: >3 cm Mallampati Score: III Focused Labs Anesthesia Preop lab: CBC WBC 7.2 K/mm3 (4.4-11.0) 10/25/23 05:08 RBC 2.51 M/mm3 (4.2-5.4) L 10/25/23 05:08 Hgb 7.5 g/dL (12.0-15.0) L 10/25/23 05:08 Hct 23.3 % (37-47) L 10/25/23 05:08 Plt Count 194 K/mm3 (150-450) 10/25/23 05:08 CHEMISTRY Potassium 2.9 mmol/L (3.5-5.1) L 10/25/23 05:08 Sodium 140 mmol/L (136-145) 10/25/23 05:08 Magnesium 1.7 mg/dL (1.6-2.6) 10/25/23 05:08 Phosphorus 2.4 mg/dL (2.5-4.9) L 10/25/23 05:08 BUN 8 mg/dL (7-18) 10/25/23 05:08 Creatinine 0.45 mg/dL (0.55-1.02) L 10/25/23 05:08 Glucose 152 mg/dL (74-106) H 10/25/23 05:08 POC Glucose 164 mg/dL (74-106) H 10/25/23 11:51 TSH 1.920 uIU/mL (0.358-3.740) 10/25/23 05:08 COAG PT 14.4 SECONDS (11.7-14.9) 10/24/23 02:06 Pre-Assessment Diagnosis/Proposed Procedure Planned Operative Procedure(s): colon/ egd Anesthesia History 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 When Was Last Pacemaker Check QUESTION #4 FULL TEXT: You/Your Family Experience fever (hyperthermia) with Anesthesia Last Oral Intake Last Oral intake: Last Oral Intake NPO since 00:00 10/25/23 13:24 Meds taken in AM with sips of No 10/25/23 13:24 water? Meds patient instructed to take am of surgery PONV PONV - encoding machine operator: PONV - encoding machine operator Female HX of Motion Sickness HX of N/V After Surgery Non-Smoker Duration of Surgery greater than 60 minutes Number of Risk Factors PONV Score Height & Weight Height & Weight: Anesthesia: Height & Weight Height 5 ft 4 in 10/25/23 13:24 Weight: 106.1 kg 10/25/23 13:24 Body Mass Index (BMI) 40.1 10/25/23 13:24 Respiratory Assessment Respiratory Assessment - encoding machine operator: Respiratory Tract Infection Hx - encoding machine operator Hx Respiratory Tract Infection No 10/24/23 22:08 STOP Sleep Apnea STOP Sleep Apnea - encoding machine operator: STOP Sleep Apnea - encoding machine operator Hx Hypertension Yes 10/24/23 12:38 Hx Sleep Apnea No 10/24/23 07:41 CPAP BIPAP Do you snore loudly (louder Yes 10/24/23 07:41 than talking or can be heard Do you often feel tired/ No 10/24/23 07:41 fatigued/ sleepy during daytime? Has anyone observed you stop No 10/24/23 07:41 breathing during sleep? STOP Results Positive 10/24/23 07:41 QUESTION #5 FULL TEXT : Do you snore loudly (louder than talking or can be heard through closed doors)? 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 Specify any problems Hx of Preganancy in last 3 N/A 10/24/23 07:41 Months Nurse Filling Out Transfusion DSLOAN 10/24/23 07:41 & Questions: Date: 10/24/23 10/24/23 07:41 Time: 07:42 10/24/23 07:41 Patient unable to answer at this time (ie. confused, unrespo /Reproduction History /Reproductive History - encoding machine operator: /Reproductive Hx- encoding machine operator Hx Now No 10/24/23 22:08 Gestational Age (in weeks): EDC: Hx Hx Para Hx Section SAB Active Medications Active Medications: Current Medications Generic Name Dose Route Start Last Admin Trade Name Freq PRN Reason Stop Dose Admin Ascorbic Acid 1,000 mg 10/25/23 17:00 Ascorbic Acid 500 Mg Tablet PO BIDCM MOI Glucagon 1 mg 10/24/23 12:11 Glucagon 1 Mg/Ml Syringe IM X1 PRN Hypoglycemia Protocol Pantoprazole Sodium 80 mg/ 100 mls @ 10 mls/hr 10/24/23 02:58 10/25/23 10:23 Sodium Chloride CONT INF 10 mls/hr Q10H MOI Administration Sodium Chloride 250 mls @ 15 mls/hr 10/24/23 07:27 IV .[id number] PRN Additional IVPB Infusion Sodium Chloride 250 mls @ 15 mls/hr 10/24/23 07:27 IV .[id number] PRN Saline Flush Dextrose 250 mls @ 0 mls/hr 10/24/23 12:11 Dextrose 10%-Water IV .Q0M PRN HYPOGLYCEMIA Protocol As Directed Sodium Chloride 1,000 mls @ 15 mls/hr 10/25/23 14:05 10/25/23 14:09 IV 15 mls/hr .Q48H MOI Administration Insulin Glargine 25 unit 10/25/23 10:00 10/25/23 09:30 Insulin Glargine-Yfgn 100 Unit/Ml Pen SC Not Given DAILY MOI Protocol Insulin Human Lispro 0 unit 10/24/23 16:00 10/25/23 12:10 Insulin Lispro 100 Unit/Ml Insuln.Pen SC Not Given ACHS MOI Protocol Insulin Human Lispro 10 unit 10/24/23 16:00 10/25/23 12:11 Insulin Lispro 100 Unit/Ml Insuln.Pen SC Not Given TIDAC MOI Protocol Morphine Sulfate 2 mg 10/24/23 07:16 Morphine 2 Mg/Ml Syringe IV Q4 PRN Pain Score 6-10 Ondansetron HCl 4 mg 10/24/23 07:16 Ondansetron 4 Mg/2 Ml Vial IV Q8H PRN PRN NAUSEA/VOMITING Sodium Chloride 10 - 40 ml 10/24/23 07:27 0.9% Saline Lock 10 Ml Syringe IV UD PRN SALINE FLUSH PFSH Medical History Diabetes Medical History no medical history Home Medications ?Medication ?Instructions ?Recorded ?Last Taken ?Type aspirin 325 mg capsule 325 mg PO DAILY pain 10/24/23 Unknown History Allergy/AdvReac Type Severity Reaction Status Date / Time No Known Allergies Allergy Unverified 01/31/17 15:24 Surgical History Hx of cholecystectomy Social History Smoking Status: Never smoker alcohol intake: never Review of Systems (Anesthesia) ROS Narrative System reviewed and no additional complaints, except as documented.
--- NOTE | 2023-10-25 15:15 | EX.PCM.CON.G ---
HPI Consult Data Date of Consult: 10/25/23 HPI Narrative Reason for Consultation: GI bleed HPI Narrative: WILLIAM GOLD, is a 62 F with a positive family history of gastric cancer in her mother who presents to [facility] ER complaining of GI bleed with dark stools and Severe Hyperglycemia. Ms Gold reports her symptoms began approximately 2-3 days prior to admission with the abrupt-onset of dark colored stools that initially was mild but then progressively worsened at approximately 6 AM yesterday with large volume of dark very foul-smelling stools. 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 She denies a history of GI bleeding, known peptic ulcer disease, GERD, other recent illness or similar previous episodes. She admits to nausea but she denies vomiting, fever, chills, constipation, chest pain or shortness of breath. She has not been actively managing her blood sugars or any of her other chronic health conditions. In the ER she underwent a CTA of the abdomen and pelvis with IV contrast that was negative for active bleeding at this time and she was then diagnosed with acute upper GI bleed with dark stools followed by bright red blood per rectum likely due to gastritis and suspected PUD. [facility] Medical History Diabetes Medical History no medical history Home Medications ?Medication ?Instructions ?Recorded ?Last Taken ?Type aspirin 325 mg capsule 325 mg PO DAILY pain 10/24/23 Unknown History Allergy/AdvReac Type Severity Reaction Status Date / Time No Known Allergies Allergy Unverified 01/31/17 15:24 Surgical History Hx of cholecystectomy Social History Smoking Status: Never smoker alcohol intake: never ROS ROS Narrative Review of systems: General: Patient denies fever or chills. HENT: Denies headache, denies stuffy nose, denies sore throat EYES: Denies changes in vision or discharge from eyes. Resp: Denies cough, denies shortness of breath Cardiac: Denies chest pain, palpitations or heart racing. GI: Patient admits to GI bleed with dark stools with epigastric abdominal pain and nausea but she denies vomiting as per HPI. : Denies changes in urination Extremity: Denies swelling Musculoskeletal: Feels somewhat generally weak and unwell with chronic knee pain that is made worse with mobilization. She denies myalgias. Neuro: Patient denies headache, paresthesias or focal neurologic deficits. Heme: Patient admits to dark stools with intermittent BRBPR. Skin: Denies rashes Psychiatric: No complaints voiced related uncontrolled depression or anxiety. Endocrine: No polyuria, polydipsia or polyphagia. The rest of the 14 point ROS was negative except for positives in HPI. Physical Exam Narrative Physical exam: General: Alert, Oriented x3, Cooperative HEENT: Atraumatic, PERRLA, EOMI, Normocephalic Oral: No Gingival or Mucosal Lesions/ Ulcerations Neck: Supple, No JVD, Negative Carotid Bruits Chest wall/Lungs: Air entry diminished in bilateral lung bases. No crepitation/rhonchi Cardiovascular: Regular rate, Regular Rhythm, Normal S1, Normal S2, No M/G/R Abdomen: Bowel Sounds Present, Soft, Non Tender, Non-Distended : No dysuria. No renal angle tenderness. No suprapubic tenderness. Extremities: No edema, Capillary Refill Less than 3 Seconds Skin: No rashes, No breakdown Musculoskeletal: No Tenderness to Palpation of Joints or Extremities Neurological: Cranial nerves II-XII grossly intact, DTR 2+/4. No acute focal neurological deficit. Psych/Mental Status: Normal Affect, Appropriate. Lab / Micro Data 10/25/23 05:08 10/25/23 05:08 Labs: Laboratory Results - last 24 hr 10/24/23 15:48: POC Glucose 297 H 10/24/23 22:53: POC Glucose 141 H 10/25/23 05:08: WBC 7.2, RBC 2.51 L, Hgb 7.5 L, Hct 23.3 L, MCV 92.8, MCH 29.9, MCHC 32.2, RDW Std Deviation 41.4, RDW Coeff of Vladislav 12.4, Plt Count 194, MPV 11.1, Immature Gran % (Auto) 0.700, Neut % (Auto) 53.8, Lymph % (Auto) 35.4, Hardy % (Auto) 5.1, Eos % (Auto) 4.2, Baso % (Auto) 0.8, Absolute Neuts (auto) 3.9, Absolute Lymphs (auto) 2.55, Nucleated RBC % 0, Sodium 140, Potassium 2.9 L, Chloride 105, Carbon Dioxide 27.0, Anion Gap 8, BUN 8, Creatinine 0.45 L, Estim Creat Clear Calc 150.06, Est GFR (MDRD) Af Amer 179, Est GFR (MDRD) Non-Af 148, BUN/Creatinine Ratio 17.7, Glucose 152 H, Calcium 7.9 L, Phosphorus 2.4 L, Magnesium 1.7, Total Bilirubin 0.60, AST 15, ALT 16, Alkaline Phosphatase 57, Total Protein 4.8 L, Albumin 2.4 L, Globulin 2.4, Albumin/Globulin Ratio 1.0, TSH 1.920 10/25/23 06:35: POC Glucose 138 H 10/25/23 11:51: POC Glucose 164 H Assessment & Plan Assessment/Plan (1) Upper GI bleed: (2) Adverse drug reaction: QUALIFIERS: Encounter type: initial encounter Qualified Code(s): T50.905A - Adverse effect of unspecified drugs, medicaments and biological substances, initial encounter (3) Lactic acidosis: (4) Severe hyperglycemia due to diabetes mellitus: (5) Medical non-compliance: (6) Morbid obesity with BMI of 45.0-49.9, adult: (7) Family history of gastric cancer: (8) Osteoarthritis: QUALIFIERS: Osteoarthritis location: knee Osteoarthritis type: unspecified Laterality: bilateral Qualified Code(s): M17.0 - Bilateral primary osteoarthritis of knee (9) Hx of cholecystectomy: PLAN: Plan 62-year-old presents with GI bleed likely secondary to upper GI bleed with dark stools followed by BRBPR suspected to be due to gastritis and possible PUD with significantly elevated BUN of 36 mg/dL. She also had episodes of bright red blood per rectum. Recommend to continue Protonix drip. Type and screen blood and transfuse for hemoglobin less than 7 g/dL. She will undergo EGD and colonoscopy. She was explained alternatives, risk, benefits include not withstanding bleeding, infection, sepsis, perforation, and need for emergent urgent . She we will have an ASA of 3. Charges/Coding Visit Charges Inpatient E&M: 86988 Init Hosp L3
--- NOTE | 2023-10-25 15:30 | IMM_PTH ---
PATIENT: WILLIAM SINGER LOC: [facility] U#:[id number] AGE/SX: 62/F ROOM: [facility] RE10/24/[address]: Dr. Dwight Bill MD : 1960 BED: 1 DIS: 10/26/2023 SPEC #: [id number] RECD: 10/26/23 09:10 STATUS: DIAMOND REQ #: [id number] JORGE: 10/25/23 15:[address]: Jean-Pierre Vázquez DEPT: IMMUNOHISTOCHEMISTRY RECD BY: Stuart Stone ENTERED: 10/26/23 09:10 SP TYPE: IMMUNO OTHR DR: DO Dr. Dwight Cerna MD No Primary Care Phys Tissues: A - Gastric mucous membrane Procedures: H Pylori (initial) Comments: @ Ordering doctor for H.PYLORI edited from to @ by THOMAS at 10/26/23910 @ Submitting doctor edited from to @ by THOMAS at 10/26/23910 PHYSICIAN & [place] [id number] SPECIMEN INFORMATION: Tissue Source: A- Gastric ulcer biopsy Clinical Info: Upper GI bleed Specimen Number: [id number] CPT code: 48481 METHODOLOGY: Deparaffinized sections of prefer/formalin-fixed tissue or PAP/DQ stained slides are incubated with monoclonal/polyclonal antibodies/oligonucleotide probes. Localization is made via biotin free immunoperoxidase method. Appropriate controls are performed and reacted as expected. Results on target cell population are indicated in the following table: RESULTS: ANTIBODY / CLONE RESULT Block A H Pylori (polyclonal) negative These tests were developed and their performance characteristics determined by [facility]. They may not have been cleared or approved by the U.S. Food and Drug Administration. The FDA has determined that such clearance or approval is not necessary. The above immunohistochemical/dualISH markers are ordered and reviewed by the Pathologist. INTERPRETATION: A. Gastric ulcer, biopsy: Negative for Helicobacter pylori organisms. JASMYNE/ 10/27/2023
--- NOTE | 2023-10-25 15:52 | OP.EGD_ITS ---
Patient Name: Rosy Gold Procedure Date: 10/25/2023 3:17 PM Date of : 1960 Age: 62 Procedure: Upper GI endoscopy Indications: Hematochezia, Melena Providers: Jean-Pierre Vázquez DO Medicines: Monitored Anesthesia Care Patient Profile: This is a 62 year old female. Refer to note in patient chart for documentation of history and physical. Patient has symptoms of acute epigastric abdominal pain. Complications: No immediate complications. Procedure: Pre-Anesthesia Assessment: - Prior to the procedure, a History and Physical was performed, and patient medications and allergies were reviewed. The patient is competent. The risks and benefits of the procedure and the sedation options and risks were discussed with the patient. All questions were answered and informed consent was obtained. Patient identification and proposed procedure were verified by the physician in the pre-procedure area. Mental Status Examination: alert and oriented. Airway Examination: normal oropharyngeal airway and neck mobility. Respiratory Examination: clear to auscultation. CV Examination: normal. Prophylactic Antibiotics: The patient does not require prophylactic antibiotics. Prior Anticoagulants: The patient has taken no anticoagulant or antiplatelet agents. ASA Grade Assessment: II - A patient with mild systemic disease. After reviewing the risks and benefits, the patient was deemed in satisfactory condition to undergo the procedure. The anesthesia plan was to use monitored anesthesia care (MAC). Immediately prior to administration of medications, the patient was re-assessed for adequacy to receive sedatives. The heart rate, respiratory rate, oxygen saturations, blood pressure, adequacy of pulmonary ventilation, and response to care were monitored throughout the procedure. The physical status of the patient was re-assessed after the procedure. After obtaining informed consent, the endoscope was passed under direct vision. Throughout the procedure, the patient's blood pressure, pulse, and oxygen saturations were monitored continuously. The Colonoscope was introduced through the mouth, and advanced to the second part of duodenum. The upper GI endoscopy was accomplished without difficulty. The patient tolerated the procedure well. Scope In: 3:26:56 PM Scope Out: 3:31:12 PM Total Procedure Duration Time 0 hours 4 minutes 16 seconds Findings: The examined esophagus was normal. Diffuse mild inflammation characterized by congestion (edema), erosions and erythema was found in the gastric body. Biopsies were taken with a cold forceps for histology. Verification of patient identification for the specimen was done. Biopsies were taken with a cold forceps for Helicobacter pylori testing. Verification of patient identification for the specimen was done. Estimated blood loss was minimal. Few non-bleeding linear duodenal ulcers with no stigmata of bleeding were found in the first portion of the duodenum. The largest lesion was 5 mm in largest dimension. Biopsies were taken with a cold forceps for histology. Verification of patient identification for the specimen was done. Estimated blood loss was minimal. Biopsies were taken with a cold forceps for histology. Verification of patient identification for the specimen was done. Estimated blood loss was minimal. Impression: - Normal esophagus. - Acute gastritis. Biopsied. - Non-bleeding duodenal ulcers with no stigmata of bleeding. Biopsied. Recommendation: - Return patient to hospital fan for ongoing care. - Resume regular diet. - Continue present medications. - Await pathology results. - Repeat upper endoscopy for surveillance. Procedure Code(s): --- Professional --- 10866, Esophagogastroduodenoscopy, flexible, transoral; with biopsy, single or multiple CPT copyright 2021 [employer]. All rights reserved. The codes documented in this report are preliminary and upon joint finisher review may be revised to meet current compliance requirements. Jean-Pierre Vázquez DO 10/25/2023 3:51:37 PM This report has been signed electronically. Number of Addenda: 0 Note Initiated On: 10/25/2023 3:17 PM
--- NOTE | 2023-10-25 15:52 | OP.CCLET_ITS ---
10/25/2023 No Primary Care Physician Re : Upper GI endoscopy procedure for Rosy Gold [facility] Physician This procedure was performed on Wednesday, October 25, 2023. My impressions and recommendations are as follows: Impressions : - Normal esophagus. - Acute gastritis. Biopsied. - Non-bleeding duodenal ulcers with no stigmata of bleeding. Biopsied. Recommendations : - Return patient to hospital fan for ongoing care. - Resume regular diet. - Continue present medications. - Await pathology results. - Repeat upper endoscopy for surveillance. My findings are described in the full procedure note, which is enclosed. If I can be of further assistance, please feel free to contact me at . Sincerely, Jean-Pierre Vázquez, 10/25/2023 3:51:37 PM This report has been signed electronically.
--- NOTE | 2023-10-25 15:52 | PCM.POST.ANE ---
Anesthesia: Postop Eval I Current Vital Signs Temperature: 97 F Pulse Rate: 86 Blood Pressure: 111/66 Respiratory Rate: 16 Pulse Ox: 97 Oxygen Delivery Method: Room Air Assessment Airway patent: Yes Spontaneous unlabored respirations: Yes Mental status: Awake and Calm nausea: No Vomiting: No Anesthesia Complication: No Fluid Hydration Crystalloid volume administer (ml): 700 Total IV fluid infused: 700 Progress Note Anesthesia document: Postop Eval 1 completed: Yes
--- NOTE | 2023-10-25 15:55 | OP.CCLET_ITS ---
10/25/2023 No Primary Care Physician Re : [facility] This procedure was performed on Wednesday, October 25, 2023. My impressions and recommendations are as follows: Impressions : - Anal fissure. - Diverticulosis in the recto-sigmoid colon. - The examination was otherwise normal on direct and retroflexion views. - Mild inflammation was found in the ileum secondary to ileitis. Biopsied. Recommendations : - Discharge patient to home. - Resume previous diet. - Continue present medications. - Await pathology results. - Repeat colonoscopy for surveillance based on pathology results. My findings are described in the full procedure note, which is enclosed. If I can be of further assistance, please feel free to contact me at . Sincerely, Jean-Pierre Friend, 10/25/2023 3:54:55 PM This report has been signed electronically.
--- NOTE | 2023-10-25 15:55 | OP.COLON_ITS ---
Patient Name: Rosy Gold Procedure Date: 10/25/2023 3:31 PM Date of : 1960 Age: 62 Procedure: Colonoscopy Indications: Hematochezia Providers: Jean-Pierre Vázquez DO Medicines: Monitored Anesthesia Care Patient Profile: This is a 62 year old female. Refer to note in patient chart for documentation of history and physical. Patient has symptoms of acute epigastric abdominal pain. Last Colonoscopy: date unknown. Unable to locate last colonoscopy report. Complications: No immediate complications. Procedure: Pre-Anesthesia Assessment: - Prior to the procedure, a History and Physical was performed, and patient medications and allergies were reviewed. The patient is competent. The risks and benefits of the procedure and the sedation options and risks were discussed with the patient. All questions were answered and informed consent was obtained. Patient identification and proposed procedure were verified by the physician in the pre-procedure area. Mental Status Examination: alert and oriented. Airway Examination: normal oropharyngeal airway and neck mobility. Respiratory Examination: clear to auscultation. CV Examination: normal. Prophylactic Antibiotics: The patient does not require prophylactic antibiotics. Prior Anticoagulants: The patient has taken no anticoagulant or antiplatelet agents. ASA Grade Assessment: II - A patient with mild systemic disease. After reviewing the risks and benefits, the patient was deemed in satisfactory condition to undergo the procedure. The anesthesia plan was to use monitored anesthesia care (MAC). Immediately prior to administration of medications, the patient was re-assessed for adequacy to receive sedatives. The heart rate, respiratory rate, oxygen saturations, blood pressure, adequacy of pulmonary ventilation, and response to care were monitored throughout the procedure. The physical status of the patient was re-assessed after the procedure. After I obtained informed consent, the scope was passed under direct vision. Throughout the procedure, the patient's blood pressure, pulse, and oxygen saturations were monitored continuously. The Colonoscope was introduced through the anus and advanced to the terminal ileum. The colonoscopy was performed without difficulty. The patient tolerated the procedure well. The quality of the bowel preparation was adequate. The terminal ileum, ileocecal valve, appendiceal orifice, and rectum were photographed. Scope In: 3:34:07 PM Scope Withdrawal Time 0 hours 7 minutes 7 seconds Scope Out: 3:43:22 PM Total Procedure Duration Time 0 hours 9 minutes 15 seconds Findings: The perianal and digital rectal examinations were normal. A 5 mm anal fissure was found in the anal canal. A few small-mouthed diverticula were found in the recto-sigmoid colon. The exam was otherwise without abnormality on direct and retroflexion views. Localized mild inflammation characterized by congestion (edema) was found in the terminal ileum. Biopsies were taken with a cold forceps for histology. Verification of patient identification for the specimen was done. Estimated blood loss was minimal. Impression: - Anal fissure. - Diverticulosis in the recto-sigmoid colon. - The examination was otherwise normal on direct and retroflexion views. - Mild inflammation was found in the ileum secondary to ileitis. Biopsied. Recommendation: - Discharge patient to home. - Resume previous diet. - Continue present medications. - Await pathology results. - Repeat colonoscopy for surveillance based on pathology results. Procedure Code(s): --- Professional --- 31775, Colonoscopy, flexible; with biopsy, single or multiple CPT copyright 2021 [employer]. All rights reserved. The codes documented in this report are preliminary and upon brazing machine setter review may be revised to meet current compliance requirements. Jean-Pierre Vázquez DO 10/25/2023 3:54:55 PM This report has been signed electronically. Number of Addenda: 0 Note Initiated On: 10/25/2023 3:31 PM
--- NOTE | 2023-10-25 16:06 | PCM.POSTANE2 ---
Anesthesia Postop Eval I Sum Postop Eval Completion status Anesthesia document: Postop Eval 1 completed: Yes Anesthesia Postop Eval I Summary Anesthesia Postop Eval I Summary: Anesthesia Postop Eval I: Assessment Summary Airway patent Yes 10/25/23 15:53 [email or web address] Spontaneous unlabored Yes 10/25/23 15:53 [email or web address] respirations Mental status Awake,Calm 10/25/23 15:53 [email or web address] nausea No 10/25/23 15:53 [email or web address] Vomiting No 10/25/23 15:53 [email or web address] Anesthesia Postop Eval I: Fluid Summary Crystalloid volume administer 700 10/25/23 15:53 [email or web address] (ml) Colloids volume administered ( ml) Blood Product volume administered (ml) Total IV fluid infused 700 10/25/23 15:53 [email or web address] Anesthesia Postop Eval I: Summary Notes Anesthesia Complication No 10/25/23 15:53 [email or web address] Anesthesia Complication Comment: Post-operative progress note Anesthesia: Postop Eval II Evaluation Mental status: Awake Pain Level: 0 nausea: No Vomiting: No
[2023-10-25 16:51] LABS: Bedside Glucose 165 mg/dL (74-106)
[2023-10-25] MEDS: Ascorbic Acid 500 MG Tablet 1000 MG PO (18:56)
[2023-10-25] MEDS: Insulin Lispro 100 UNIT/ML INSULN.PEN SC (21:24)
[2023-10-25 22:18] LABS: Bedside Glucose 247 mg/dL (74-106)
[2023-10-26 03:19] VITALS: BP 158/53; PULSE 113; RESP 16; TEMP 37.8; O2SAT 93
[2023-10-26 03:32] VITALS: BMI 41.1
[2023-10-26 06:59] LABS: Bedside Glucose 148 mg/dL (74-106)
[2023-10-26 06:59] LABS: Magnesium 2.1 mg/dL (1.6-2.6); Phosphorus 3.3 mg/dL (2.5-4.9)
[2023-10-26] MEDS: Pantoprazole Sodium 80 MG in 0.9% Normal Saline (100mL Bag) 80 ML 10 MG CONT INF (07:43)
[2023-10-26 08:30] VITALS: BP 136/55; PULSE 103; RESP 18; TEMP 37.7; O2SAT 93
[2023-10-26] MEDS: Ascorbic Acid 500 MG Tablet 1000 MG PO (08:31)
--- NOTE | 2023-10-26 10:22 | DCINST_ITS ---
Discharge Instructions Diet Discharge Diet: No restrictions Activity Discharge Activity: Return to Normal Activity Weight Bearing Status: Weight bearing as tolerated Dressing / Incision Call your doctor if you observe: Fever of 101 or Higher, Coldness, Increased Pain, Numbness or Tingling, Change in Color, Inability to urinate, Inability to have a bowel movement, Shortness of breath, Dizziness, Fainting spells, Swelling in the ankles, Chest pain, Prolonged hiccupping, Increased palpitations (irregular heartbeat) and Calf discomfort Follow Up Care When: IN 2 WEEKS Test Results: Test results from this visit will be discussed in further detail at your follow- up appointment, if applicable. Discharge Plan Admission Admit Date/Time: 10/24/23 06:09 Primary Reason for Your Visit: Upper GI bleed Attending Provider: Dwight Bill Primary Care Provider: Care Physician,No Primary Consulting Providers: Zeb Gonzalez Discharge Orders/Prescriptions Prescriptions: New insulin lispro [Humalog KwikPen Insulin] 100 unit/mL Insulin Pen See Protocol subcut ACHS Qty: 0 0RF Protocol: 4. Sliding Scale Insulin High-Med Dosing Condition: 150-199 mg/dl = 2 units Condition: 200-259 mg/dl = 4 units Condition: 260-324 mg/dl = 6 units Condition: 325-374 mg/dl = 8 units Condition: 375-409 mg/dl = 10 units Condition: 410-449 mg/dl = 11 units Condition: Greater than 449 call physician Protocol Text: Suggested for: - Patients on Total Daily Insulin Dose of 56-80 units - Patient who are known to be insulin resistant or septic HIGH MEDIUM DOSING ALGORITHM insulin lispro [Humalog KwikPen Insulin] 100 unit/mL Insulin Pen 12 unit subcut TIDAC 30 Days Qty: 10.8 3RF Rx Instructions: Hold if glucose less than 130 mg/dl insulin glargine [Lantus Solostar U-100 Insulin] 100 unit/mL (3 mL) insulin pen 30 unit subcut DAILY 30 Days Qty: 15 5RF Rx Instructions: Hold if glucose less than 130 mg/dl (DME) needle (disp) 32 gauge 32 gauge x 5/16 needle See Rx Instructions .ROUTE .MEDSUPPLY Qty: 100 2RF Rx Instructions: As directed pantoprazole [Protonix] 40 mg tablet,delayed release (DR/EC) 40 mg PO BID 30 Days Qty: 60 2RF metformin 500 mg tablet 500 mg PO BID 30 Days Qty: 60 2RF ascorbic acid (vitamin C) 500 mg tablet 500 mg PO BID Qty: 60 2RF ferrous sulfate 325 mg (65 mg iron) tablet 325 mg PO QODAY Qty: 30 2RF Discontinued aspirin 325 mg capsule 325 mg PO DAILY Other Ambulatory Orders: Glucometer (Routine) Timeframe: 1 Day Location: Determined by Patient Ordered By: Dr. Dwight Bill Referrals / Follow Up: Jean-Pierre Vázquez DO [Med Staff - Active Staff] - Within 1 Month (Follow-up for colonoscopy biopsy) Care Physician,No Primary [Primary Care Provider] - Disposition Disposition (needs filled in before D/C Order can be placed): Home, Self Care
--- NOTE | 2023-10-26 10:38 | DS.PCM_ITS ---
Providers Date of Admission: 10/24/23 Primary Care Physician: Steffi Primary Care Phys Consultations 10/24/23 06:41 Consult: Gastroenterology Routine Consulting Provider: Joel [facility] Reason for Consult: GI Bleed with Dark Stools followed by [facility]. EMERGENT Consult: No MD Notified: Yes Date Notified: 10/24/23 Time Notified: 06:41 Method of Notification: Text Reason For Visit: GI BLEE DARK STOOLS,ADVERE DRUG RXN,HYPERGLYCEMIA Diagnosis Discharge Diagnosis (1) Upper GI bleed: Status: Acute Code(s): K92.2 - Gastrointestinal hemorrhage, unspecified (2) Adverse drug reaction: Status: Acute Code(s): T50.905A - Adverse effect of unspecified drugs, medicaments and biological substances, initial encounter Qualifiers: Encounter type: initial encounter Qualified Code(s): T50.905A - Adverse effect of unspecified drugs, medicaments and biological substances, initial encounter (3) Lactic acidosis: Status: Acute Code(s): E87.20 - Acidosis, unspecified (4) Severe hyperglycemia due to diabetes mellitus: Status: Acute Code(s): E11.65 - Type 2 diabetes mellitus with hyperglycemia (5) Medical non-compliance: Status: Acute Code(s): Z91.199 - Patient's noncompliance with other medical treatment and regimen due to unspecified reason (6) Morbid obesity with BMI of 45.0-49.9, adult: Status: Acute Code(s): E66.01 - Morbid (severe) obesity due to excess calories; Z68.42 - Body mass index [BMI] 45.0-49.9, adult (7) Family history of gastric cancer: Status: Acute Code(s): Z80.0 - Family history of malignant neoplasm of digestive organs (8) Osteoarthritis: Status: Acute Code(s): M19.90 - Unspecified osteoarthritis, unspecified site Qualifiers: Osteoarthritis location: knee Osteoarthritis type: unspecified L aterality: bilateral Qualified Code(s): M17.0 - Bilateral primary osteoarthritis of knee (9) Hx of cholecystectomy: Status: Acute Code(s): Z98.890 - Other specified postprocedural states; Z90.49 - Acquired absence of other specified parts of digestive tract Plan 1. Upper GI bleed: Patient had melena for 1 week before having bright red rectal bleed. BUNs/creatinine ratio 30 suggestive of upper GI bleed. Admitted to PCU keep strict n.p.o. and continue Protonix drip. Type and screen blood and transfuse for hemoglobin less than 7 g/dL. Give Zofran IV as needed for nausea or vomiting. Give morphine IV as needed for severe (level 6-10/10) pain. Finally, consult has been placed to bible teacher on-call see patient on rounds in the a.m. for further recommendations regarding EGD this admission with help appreciated in advance. 10/24: Plan for EGD today. Hemoglobin dropped from 10.4-7.5. Iron profile including iron saturation ferritin normal range. Acute severe blood loss anemia from GI bleed. IV iron ordered 10/25: Patient had EGD and colonoscopy on 10/25. Electrolyte abnormality: Patient has hypokalemia, hypophosphatemia and magnesium. Low normal. Electrolytes replacement ordered. Electrolytes were corrected. Repeat magnesium 2.1. Phosphorus 3.3. Impression: - Normal esophagus. - Acute gastritis. Biopsied. - Non-bleeding duodenal ulcers with no stigmata of bleeding. Biopsied. Recommendation: - Return patient to hospital [facility] for ongoing care. - Resume regular diet. - Continue present medications. - Await pathology results. - Repeat upper endoscopy for surveillance. Impressions : - Anal fissure. - Diverticulosis in the recto-sigmoid colon. - The examination was otherwise normal on direct and retroflexion views. - Mild inflammation was found in the ileum secondary to ileitis. Biopsied. Recommendations : - Discharge patient to home. - Resume previous diet. - Continue present medications. - Await pathology results. - Repeat colonoscopy for surveillance based on pathology results. Acute blood loss anemia on chronic anemia due to upper GI bleed: Patient had IV iron yesterday. Discharged on ferrous sulfate and ascorbic acid. 2. Adverse Drug Reaction to unopposed aspirin probably causing upper GI bleed- Hold aspirin until further notice. 3. Lactic Acidosis of 3.6 mmol/L present on admission probably from upper GI bleed- Volume resuscitate, continue supportive and serialize lactate to monitor trend. 4. DM type II, severe hyperglycemia of 616 mg/dL present on admission ; uncontrolled with Hyperglycemia - Give Lantus 30 units sq once with aim to keep blood glucose ~200 mg/dL to prevent hypoglycemia Glucose 251. 10/24: A1c 12.9%. Glucose controlled 138 in the morning and scheduled Humalog insulin 10 units 3 times daily with meal. 10/25: Glucose well-controlled. Patient discharged on Lantus and Humalog insulin. Accu-Chek before meals and at bedtime with Humalog sliding scale coverage and hypoglycemia protocol. Prescriptions were given for insulin, glucometer and needles. 5. Medical Noncompliance - Patient was instructed to take her medications and keep her follow up appointments as instructed in an effort to avoid further deterioration of her health status. 6. Morbid obesity; with BMI of ~45 - Weight loss will be recommended. Check TSH. This complicates her case and may hamper her recovery. 7. History of cholecystectomy (1989) - Noted. 8. OA; with patient using daily unopposed ECASA to control pain - Avoid ECASA and NSAID's. Give Tylenol prn once patient is cleared for oral intake. 9. DVT prophylaxis - SCD's only in light of GI bleeding 10/24/23 02:06: Hemoglobin A1c 12.9 H 10/24/23 08:21: POC Glucose 251 H 10/24/23 15:48: POC Glucose 297 H 10/24/23 22:53: POC Glucose 141 H 10/25/23 05:08: WBC 7.2, RBC 2.51 L, Hgb 7.5 L, Hct 23.3 L, MCV 92.8, MCH 29.9, MCHC 32.2, RDW Std Deviation 41.4, RDW Coeff of Vladislav 12.4, Plt Count 194, MPV 11.1, Immature Gran % (Auto) 0.700, Neut % (Auto) 53.8, Lymph % (Auto) 35.4, [place] % (Auto) 5.1, Eos % (Auto) 4.2, Baso % (Auto) 0.8, Absolute Neuts (auto) 3.9, Absolute Lymphs (auto) 2.55, Nucleated RBC % 0, Sodium 140, Potassium 2.9 L, Chloride 105, Carbon Dioxide 27.0, Anion Gap 8, BUN 8, Creatinine 0.45 L, Estim Creat Clear Calc 150.06, Est GFR (MDRD) Af Amer 179, Est GFR (MDRD) Non-Af 148, BUN/Creatinine Ratio 17.7, Glucose 152 H, C alcium 7.9 L, Phosphorus 2.4 L, Magnesium 1.7, Total Bilirubin 0.60, AST 15, ALT 16, Alkaline Phosphatase 57, Total Protein 4.8 L, Albumin 2.4 L, Globulin 2.4, Albumin/Globulin Ratio 1.0, TSH 1.920 10/25/23 06:35: POC Glucose 138 H Medications at Discharge Home Medications ascorbic acid (vitamin C) 500 mg tablet 500 mg PO BID #60 tabs 10/26/23 ferrous sulfate 325 mg (65 mg iron) tablet 325 mg PO QODAY #30 tabs 10/26/23 insulin glargine 100 unit/mL (3 mL) subcutaneous pen (Lantus Solostar U-100 Insulin) 30 unit (0.3 mL) subcut DAILY 1 month #15 mL 10/26/23 insulin lispro 100 unit/mL subcutaneous pen (Humalog KwikPen (U-100) Insulin) 12 unit (0.12 mL) subcut TIDAC 1 month #10.8 mL 10/26/23 insulin lispro 100 unit/mL subcutaneous pen (Humalog KwikPen (U-100) Insulin) See Protocol subcut ACHS #0 mL 10/26/23 metformin 500 mg tablet 500 mg PO BID 1 month #60 tabs 10/26/23 needle (disp) 32 gauge 32 gauge x 5/16 #100 ea 10/26/23 pantoprazole 40 mg tablet,delayed release (Protonix) 40 mg PO BID 30 days #60 tabs 10/26/23 Physical Exam Narrative Seen and examined. No acute event yesterday. Had EGD and colonoscopy yesterday. Electrolytes abnormalities corrected. EGD colonoscopy findings explained. Patient does not have PCP. Need insulin and metformin. Physical exam: General: Alert, Oriented x3, Cooperative HEENT: Atraumatic, PERRLA, EOMI, Normocephalic Oral: No Gingival or Mucosal Lesions/ Ulcerations Neck: Supple, No JVD, Negative Carotid Bruits Chest wall/Lungs: Air entry diminished in bilateral lung bases. No crepitation/rhonchi Cardiovascular: Regular rate, Regular Rhythm, Normal S1, Normal S2, No M/G/R Abdomen: Bowel Sounds Present, Soft, Non Tender, Non-Distended : No dysuria. No renal angle tenderness. No suprapubic tenderness. Extremities: No edema, Capillary Refill Less than 3 Seconds Skin: No rashes, No breakdown Musculoskeletal: No Tenderness to Palpation of Joints or Extremities Neurological: Cranial nerves II-XII grossly intact, DTR 2+/4. No acute focal neurological deficit. Psych/Mental Status: Normal Affect, Appropriate. Weight / BMI Weight Weight: 239 lb 6.752 oz Body Mass Index (BMI) 41.1 ABG / Lab / Microbiology Data 10/25/23 05:08 10/25/23 05:08 Laboratory: Laboratory Results - last 24 hr 10/25/23 11:51: POC Glucose 164 H 10/25/23 16:32: POC Glucose 165 H 10/25/23 21:23: POC Glucose 247 H 10/26/23 05:20: Phosphorus 3.3, Magnesium 2.1 10/26/23 06:39: POC Glucose 148 H Microbiology: Microbiology 10/24/23 02:29 Stool Stool Occult Blood (DIEGO) - Final Occult Blood Positive D/C Instructions Discharge Diet: No restrictions Weight Bearing Status: Weight bearing as tolerated Call your doctor if you observe: Fever of 101 or Higher, Coldness, Increased Pain, Numbness or Tingling, Change in Color, Inability to urinate, Inability to have a bowel movement, Shortness of breath, Dizziness, Fainting spells, Swelling in the ankles, Chest pain, Prolonged hiccupping, Increased palpitations (irregular heartbeat) and Calf discomfort When: IN 2 WEEKS Meaningful Use Info Meaningful Use Meaningful Use Diagnoses (Choose all that apply): None applicable Ischemic Stroke Statin Dosing Therapy Reference: STATIN DOSE THERAPY REFERENCE: * Patients > 75 years receive moderate or high dose statin therapy. * Patients 75 years or YOUNGER should receive HIGH intensity statin dose unless contraindicated. You will be required to document reason for non-treatment if statin daily dose does not meet guidelines. HIGH DOSE STATIN THERAPY DAILY Atorvastatin > than or = to 40 mg Rosuvastatin > than or = to 20 mg Amlodipine + Atorvastatin > than or = to 2.5/40 mg Ezetimibe + Simvastatin 10/80 mg Simvastatin 80mg Discharge Plan Admission Admit Date/Time: 10/24/23 06:09 Primary Reason for Your Visit: Upper GI bleed Attending Provider: Dwight Bill Primary Care Provider: Care Physician,No Primary Consulting Providers: Zeb Gonzalez Discharge Orders/Prescriptions Prescriptions: New insulin lispro [Humalog KwikPen Insulin] 100 unit/mL Insulin Pen See Protocol subcut ACHS Qty: 0 0RF Protocol: 4. Sliding Scale Insulin High-Med Dosing Condition: 150-199 mg/dl = 2 units Condition: 200-259 mg/dl = 4 units Condition: 260-324 mg/dl = 6 units Condition: 325-374 mg/dl = 8 units Condition: 375-409 mg/dl = 10 units Condition: 410-449 mg/dl = 11 units Condition: Greater than 449 call physician Protocol Text: Suggested for: - Patients on Total Daily Insulin Dose of 56-80 units - Patient who are known to be insulin resistant or septic HIGH MEDIUM DOSING ALGORITHM insulin lispro [Humalog KwikPen Insulin] 100 unit/mL Insulin Pen 12 unit subcut TIDAC 30 Days Qty: 10.8 3RF Rx Instructions: Hold if glucose less than 130 mg/dl insulin glargine [Lantus Solostar U-100 Insulin] 100 unit/mL (3 mL) insulin pen 30 unit subcut DAILY 30 Days Qty: 15 5RF Rx Instructions: Hold if glucose less than 130 mg/dl (DME) needle (disp) 32 gauge 32 gauge x 5/16 needle See Rx Instructions .ROUTE .MEDSUPPLY Qty: 100 2RF Rx Instructions: As directed pantoprazole [Protonix] 40 mg tablet,delayed release (DR/EC) 40 mg PO BID 30 Days Qty: 60 2RF metformin 500 mg tablet 500 mg PO BID 30 Days Qty: 60 2RF ascorbic acid (vitamin C) 500 mg tablet 500 mg PO BID Qty: 60 2RF ferrous sulfate 325 mg (65 mg iron) tablet 325 mg PO QODAY Qty: 30 2RF Discontinued aspirin 325 mg capsule 325 mg PO DAILY Other Ambulatory Orders: Glucometer (Routine) Timeframe: 1 Day Location: Determined by Patient Ordered By: Dr. Dwight Bill Referrals / Follow Up: Friend,DO Jean-Pierre [Med Staff - Active Staff] - Within 1 Month (Follow-up for colonoscopy biopsy) Care Physician,No Primary [Primary Care Provider] - Disposition Disposition (needs filled in before D/C Order can be placed): Home, Self Care Charges/Coding Visit Charges Inpatient E&M: 47512 Disch Hosp >30min
[2023-10-26] MEDS: Insulin Glargine-YFGN 100 UNIT/ML Pen 25 UNIT SC (11:06)
--- NOTE | 2023-10-26 11:27 | PHA.DC_ITS ---
Pharmacy [facility] has performed discharge medication reconciliation and counseling for this patient. 1. ASCORBIC ACID 500MG PO BID 2. FERROUS SULFATE 325MG PO EVERY OTHER DAY 3. INSULIN GLARGINE 30 UNITS SC TIDCM 4. INSULIN LISPRO 12 UNITS SC TIDAC AND SS ACHS 5. METFORMIN 500MG PO BID 6. PANTOPRAZOLE 40MG PO BID The patient's discharge medication list was reviewed for discrepancies and discrepancies were resolved. The patient was counseled on the following discharge medications and changes in medications for homegoing were reviewed. The Reason for Use, instructions for use, and potential side effects were reviewed for all new medications. The patient's questions regarding all of their medications were answered. The patient was able to verbally demonstrate an understanding of their discharge medications. Medications at Discharge Home Medications ascorbic acid (vitamin C) 500 mg tablet 500 mg PO BID #60 tabs 10/26/23 ferrous sulfate 325 mg (65 mg iron) tablet 325 mg PO QODAY #30 tabs 10/26/23 insulin glargine 100 unit/mL (3 mL) subcutaneous pen (Lantus Solostar U-100 Insulin) 30 unit (0.3 mL) subcut DAILY 1 month #15 mL 10/26/23 insulin lispro 100 unit/mL subcutaneous pen (Humalog KwikPen (U-100) Insulin) 12 unit (0.12 mL) subcut TIDAC 1 month #10.8 mL 10/26/23 insulin lispro 100 unit/mL subcutaneous pen (Humalog KwikPen (U-100) Insulin) See Protocol subcut ACHS #0 mL 10/26/23 metformin 500 mg tablet 500 mg PO BID 1 month #60 tabs 10/26/23 needle (disp) 32 gauge 32 gauge x 5/16 #100 ea 10/26/23 pantoprazole 40 mg tablet,delayed release (Protonix) 40 mg PO BID 30 days #60 tabs 10/26/23
[2023-10-26 11:31] LABS: Bedside Glucose 224 mg/dL (74-106)
--- NOTE | 2023-10-26 11:58 | CASEMGMT ---
Patient has order for discharge. RN CM received script for glucometer. RN CM in to discuss needs at discharge. Glucometer script provided to patient. Patient denies needs or help at discharge. Patient had no further questions or concerns.
--- NOTE | 2023-10-26 15:44 | NS ---
Provided pt with [facility] Carb Counting for people with Diabetes handout. Informtion with Outpatient RD information for further DM diet education was also provided.
--- NOTE | 2023-10-26 15:47 | NS ---
Provided pt with NCM Carb Counting for people with diabetes. Gave pt Outpatient RD phone number for further DM diet education.
== END 2023-10-26 12:26 | disposition home or self-care (01) | DRG 378 ==
LOC: ED 06:24 → PCU 06:33
PROVIDERS: Internal Medicine Gastroenterology; Admitting Provider Internal Medicine; Emergency Provider Emergency Medicine; Visit Provider Internal Medicine
PROC: 0DJD8ZZ Inspection of Lower Intestinal Tract, Via Natural or Artificial Opening Endoscopic (ICD-10-PCS; CPT 45378; principal; 2023-10-25 15:25)
DX: K92.2 Gastrointestinal hemorrhage, unspecified (principal); Z68.42 Body mass index [BMI] 45.0-49.9, adult; E87.20 Acidosis, unspecified; D62 Acute posthemorrhagic anemia; E11.65 Type 2 diabetes mellitus with hyperglycemia; K26.9 Duodenal ulcer, unspecified as acute or chronic, without hemorrhage or perforation; E66.01 Morbid (severe) obesity due to excess calories; M17.0 Bilateral primary osteoarthritis of knee; E87.6 Hypokalemia; K60.2 Anal fissure, unspecified; K29.00 Acute gastritis without bleeding; K57.30 Diverticulosis of large intestine without perforation or abscess without bleeding; T39.015A Adverse effect of aspirin, initial encounter; Z80.0 Family history of malignant neoplasm of digestive organs; Z91.199 Patient's noncompliance with other medical treatment and regimen due to unspecified reason
CPT/HCPCS: 36415; 74174; 80048; 80053; 80076; 82009; 82274; 82728; 82962; 83036; 83540; 83550; 83605; 83735; 83930; 84100; 84443; 85025; 85610; 85730; 86850; 86900; 86901; 88305; 88342; 94668; 97161; 97802; 99284; J7030; J7050; J7120; Q9967; A4216; J2405; J2916; J3490

== ENCOUNTER → 2023-12-02 | Outpatient (CLI) | payer BC, SELFPAY ==
[2023-12-02 14:12] LABS: Absolute Lymphocyte Count 1.51 X10^3/uL (0.83-4.51); Absolute Neutrophil Count 6.5 X10^3/uL (2.0-7.7); Basophil# 0.08 X10^3/uL; Basophil% 0.9 % (0-1); Eosinophil# 0.16 X10^3/uL; Eosinophils% 1.8 % (0-5); Hematocrit 39.3 % (37-47); Hemoglobin 12.2 g/dL (12.0-15.0); Lymphocyte # 1.51 X10^3/ul (0.83-4.51); Lymphocyte % 17.3 % (19-41); Mean Corpuscular Hgb 28.2 pg (27.0-32.0); Mean Platelet Vol. 10.5 fl (6.2-12.0); Monocyte# 0.47 X10^3/uL; Monocyte% 5.4 % (0-10); NRBC Flagged by Analyzer 0 % (0-5); Neutrophil % 74.3 % (47-70); Platelet Count 341 K/mm3 (150-450); RBC Distribution Width CV 12.8 % (11.6-14.6); RBC Distribution Width SD 42.4 fl (35.1-43.9); Red Blood Count 4.32 M/mm3 (4.2-5.4); White Blood Count 8.8 K/mm3 (4.4-11.0)
[2023-12-02 14:26] LABS: Erythrocyte Sedimentation Rate 34 mm/hr (0-30)
[2023-12-02 14:33] LABS: ALB/GLOB Ratio 0.8 RATIO (0.9-2.4); AST(SGOT) 6 U/L (15-37); Alanine Aminotransfer ALT/SGPT 18 U/L (13-56); Albumin, Serum 3.3 g/dL (3.2-5.0); Alkaline Phosphatase 63 U/L (45-117); Anion Gap 8 (5-15); BUN 9 mg/dL (7-18); BUN/Creat Ratio 14.5 RATIO (10-20); CRP 6.52 mg/L (0.0-3.0); Calcium,Total 8.5 mg/dL (8.5-10.1); Chloride 110 mmol/L (98-107); Creatinine, Serum 0.62 mg/dL (0.55-1.02); EST Glomerular Filtration Rate 103 mL/min (>60); Est Glom Filt Rate - Afr Amer 124 mL/min (>60); Free T3 1.9 pg/mL (2.18-3.98); Globulin 3.9 g/dL (2.2-4.2); Glucose 122 mg/dL (74-106); LDH 152 U/L (84-246); Potassium 3.2 mmol/L (3.5-5.1); Protein, Total 7.2 g/dL (6.4-8.2); Sodium Level 139 mmol/L (136-145); T4 Free Direct 0.89 ng/dL (0.76-1.46)
[2023-12-08 00:07] LABS: Anti-Centromere B Ab <0.2 AI (0.0-0.9); Anti-Chromatin <0.2 AI (0.0-0.9); Anti-Jo <0.2 AI (0.0-0.9); Anti-Scleroderma-70 AB <0.2 AI (0.0-0.9); Anti-dsDNA Ab <1 IU/mL (0-9); Beef <0.10 kU/L (Class 0); Chocolate <0.10 kU/L (Class 0); Codfish <0.10 kU/L (Class 0); Corn <0.10 kU/L (Class 0); Egg, Whole <0.10 kU/L (Class 0); Milk (Cow) <0.10 kU/L (Class 0); Mussels <0.10 kU/L (Class 0); Peanut <0.10 kU/L (Class 0); Pork <0.10 kU/L (Class 0); RNP Ab 0.3 AI (0.0-0.9); SJOGREN'S Anti-SS-A test < 0.2 AI (0.0-0.9); SJOGREN'S Anti-SS-B test < 0.2 AI (0.0-0.9); Salmon <0.10 kU/L (Class 0); Shrimp <0.10 kU/L (Class 0); Smith Ab <0.2 AI (0.0-0.9); Soybean <0.10 kU/L (Class 0); Tuna <0.10 kU/L (Class 0); Wheat <0.10 kU/L (Class 0)
[2023-12-09 06:10] LABS: ACCA 8 units (0-90); ALCA 8 units (0-60); AMCA 9 units (0-100); Albumin 3.7 g/dL (2.9-4.4); Alpha-1-Globulins 0.3 g/dL (0.0-0.4); Alpha-2-Globulins 0.8 g/dL (0.4-1.0); Chromogranin A 159.9 ng/mL (0.0-101.8); Cytoplasmic Ab (C-ANCA) <1:20 titer (Neg:<1:20); Endomysial Antibody IgA Negative (Negative); Gastrin, Serum 42 pg/mL (0-115); IMMUNOFIXATION RESULT,S Comment: (.); Immunoglobulin A 283 mg/dL (87-352); Immunoglobulin E 38 IU/mL (6-495); Immunoglobulin G 1042 mg/dL (586-1602); Immunoglobulin M 115 mg/dL (26-217); PROEL- TOTAL PROTEIN 6.8 g/dL (6.0-8.5); Perinuclear Ab (P-ANCA) <1:20 titer (Neg:<1:20); gASCA 38 units (0-50); t-Transglutaminase IgA <2 U/mL (0-3)
== END | disposition home or self-care (01) ==
LOC: LAB 13:37
PROVIDERS: Referring Provider Internal Medicine Gastroenterology; Visit Provider Internal Medicine Gastroenterology
DX: K26.9 Duodenal ulcer, unspecified as acute or chronic, without hemorrhage or perforation (principal); K52.9 Noninfective gastroenteritis and colitis, unspecified
CPT/HCPCS: 36415; 80053; 82784; 82785; 82941; 83516; 83615; 84165; 84439; 84443; 84481; 85025; 85652; 86003; 86005; 86036; 86037; 86140; 86225; 86235; 86255; 86316; 86334; 86671

== ENCOUNTER → 2024-01-03 | Outpatient (CLI) | payer BC, SELFPAY ==
--- NOTE | 2024-01-03 11:59 | MRI_ITS ---
EXAM: MR ABDOMEN AND PELVIS WITH INTRAVENOUS CONTRAST CLINICAL INDICATION: K26.9 - Duodenal ulcer, MACHINE UNABLE TO FAT SAT ON CONTRAST LAVA CORONAL TECHNIQUE: Multiplanar and multisequence MR images of the abdomen and pelvis with intravenous contrast. CONTRAST: 20 cc of Clariscan IV. With water oral contrast. COMPARISON: No relevant prior studies available. FINDINGS: LOWER THORAX: Unremarkable. No pleural effusion. ABDOMEN: LIVER: Unremarkable. Normal morphology. No focal mass. GALLBLADDER AND BILE DUCTS: Cholecystectomy. No intra- or extrahepatic biliary ductal dilation. PANCREAS: Unremarkable. No focal cystic or solid mass. SPLEEN: Unremarkable. Normal size without focal cystic or solid mass. ADRENALS: Unremarkable. No nodules. KIDNEYS AND URETERS: Unremarkable. Normal renal size and position. No hydronephrosis. PELVIS: APPENDIX: No evidence of acute appendicitis. BLADDER: Unremarkable. OVARIES: Unremarkable as visualized. No mass or complex cyst. UTERUS/CERVIX: Unremarkable. No mass. Endometrial stripe is normal in thickness and appearance. ABDOMEN and PELVIS: INTRAPERITONEAL SPACE: Unremarkable. No ascites or other fluid collection. VASCULATURE: Unremarkable. Abdominal aorta is non-dilated. LYMPH NODES: No enlarged lymph nodes. MRI/Enterography Abd/Pel IMPRESSION: 1. No acute abdominal pelvic abnormality. 2. Cholecystectomy. Electronically Signed: Jose Luis Lagunas MD at 19:11 EST ,
[2024-01-03 12:22] VITALS: BP 170/67; PULSE 82; RESP 18; O2SAT 96; BMI 39.3
[2024-01-03] MEDS: Glucagon 1 MG/ML Syringe IV (14:14)
[2024-01-03 15:03] VITALS: BP 171/85; PULSE 89; RESP 16; O2SAT 95
== END | disposition home or self-care (01) ==
LOC: MRI 11:56
DX: K26.9 Duodenal ulcer, unspecified as acute or chronic, without hemorrhage or perforation (principal); K52.9 Noninfective gastroenteritis and colitis, unspecified
CPT/HCPCS: 74183; 96374; A9575; A4216; J1610